=== PATIENT | female | born 1960 | race Caucasian/White ===

== ENCOUNTER 2019-12-23 13:14 | Emergency (ER) | payer OTHER, SELFPAY ==
--- NOTE | ~2019-12-23 | XR_ITS ---
EXAMINATION: XR chest 2V EXAM DATE: 12/23/2019 13:51 INDICATION: Shortness of breath. Chest pain. 2 stents placed 4 days ago. TECHNIQUE: Frontal and lateral projections of the chest obtained and reviewed. Comparison is made to prior examination from 11/02/2018, 02/20/2017. FINDINGS: Left suprahilar granuloma. The lungs are otherwise clear. There are no pleural effusions. The cardiomediastinal silhouette is within normal limits. There is no pneumothorax suspected. The bones and soft tissues are unremarkable. There are cholecystectomy clips. Left anterior descending artery cardiac stent identified. IMPRESSION: No acute cardiopulmonary findings. Reviewed, dictated and finalized at location B. [employer]
--- NOTE | 2019-12-23 13:31 | ECG_ITS ---
Measurements Intervals [place] Rate: 63 P: 28 MO: 135 QRS: 41 QRSD: 90 T: 74 QT: 389 QTc: 401 Interpretive Statements SINUS RHYTHM NORMAL ECG Electronically Signed On 12-23-2019 13:54:58 METAL [employer] by Rajesh Hsu D.O.
[2019-12-23 13:34] VITALS: BP 116/40; PULSE 70; RESP 16; TEMP 37.1; O2SAT 100
[2019-12-23 13:48] LABS: Basophils Absolute Auto 0.1 K/mm3 (0.0-0.1); Basophils Percent Auto 0.6 % (0.2-1.2); Eosinophils Absolute Auto 0.1 K/mm3 (0-0.3); Eosinophils Percent Auto 1.2 % (0-4.4); Hematocrit 35.2 % (37.0-47.0); Hemoglobin 11.6 g/dL (12.0-15.0); Immature Granulocyte Absolute 0.06 K/mm3 (0.00-0.031); Immature Granulocyte Percent A 0.7 % (0-0.5); Lymphocytes Absolute Auto 2.64 K/mm3 (0.9-3.2); Lymphocytes Percent Auto 29.4 % (18.3-44.2); Mean Corpuscular Hemoglobin 30.7 pg (26-34); Mean Corpuscular Volume 93.1 fl (80-100); Monocytes Absolute Auto 0.9 K/mm3 (0.1-0.6); Monocytes Percent Auto 9.5 % (2.6-8.5); Neutrophils Absolute Auto 5.3 K/mm3 (1.3-6.7); Neutrophils Percent Auto 58.6 % (45.5-73.1); Platelet Count Result 294 k/mm3 (150-375); Red Blood Count 3.78 M/mm3 (4.2-5.4); Red Cell Distribution Width 12.2 % (11.5-14.5)
[2019-12-23 13:59] LABS: Blood Urea Nitrogen 15 mg/dL (7-17); Carbon Dioxide 26 mmol/L (22-30); Chloride 103 mmol/L (98-107); Estimated CRCL calculation 50 ml/min; Estimated Glomerular Filt Rate > 60; Glucose 107 mg/dL (65-105); INR 0.9; Potassium 4.1 mmol/L (3.4-5.0); Prothrombin Time 12.2 Seconds (11.1-14.7); Sodium 140 mmol/L (137-145)
[2019-12-23 14:00] LABS: Partial Thromboplastin Time 28.4 SECONDS (22.3-36.8)
[2019-12-23 14:13] LABS: Troponin I 0.394 ng/mL (0.000-0.034)
--- NOTE | 2019-12-23 14:25 | ED.CHESTPAIN ---
HPI - Chest Pain General Chief Complaint: Chest Pain Stated Complaint: CP & SOB Time Seen by Provider: 12/23/19 14:18 Source: patient and RN notes reviewed Mode of arrival: ambulatory Limitations: no limitations History of Present Illness HPI narrative: Pt is a 59 y/o female who presents to the ED with c/o intermittent sharp midsternal chest pain which occurred this morning. Pt reports her pain intermittently changes from a dull pain to a sharp pain. Pt also reports SOB and upper back pain this morning, but denies BLE edema or BLE pain. She states her symptoms were worsened when she had any sort of exertion, but were alleviated when she sat down. She states she called her corporate communications associate?s office today who prompted her to come to the ED due to her symptoms. She states she has had a similar episode 3 days ago which she was evaluated for at [place] [facility]. She reports she was diagnosed with CAD due to a positive stress test. She denies a diagnosis of an AR. She reports she was prescribed Nitroglycerin which she denies taking today. Pt also reports she had a stent placed at her last visit. MD complaint: chest pain (midsternal) Pertinent past history: coronary artery disease (diagnosed with prior ED visit) Onset (ago): hour(s) (this morning) Timing of current episode: episodic Onset: during exertion Pain location: other (midsternal) Pain radiation: none Quality: sharp and dull Relieving factors: rest (sitting down) Exacerbating factors: exertion Associated symptoms: dyspnea and other (upper back pain) Related Data Home Medications Medication Instructions Recorded Confirmed bupropion HCl mg PO 12/23/19 clopidogrel 12/23/19 lisinopril 12/23/19 metoprolol succinate [Toprol XL] PO 12/23/19 nitroglycerin mg 12/23/19 ropinirole mg 12/23/19 rosuvastatin mg 12/23/19 rosuvastatin mg 12/23/19 trazodone 12/23/19 Allergies Allergy/AdvReac Type Severity Reaction Status Date / Time No Known Allergies Allergy Unverified 10/01/13 18:22 Review of Systems Review of Systems: All systems reviewed & are unremarkable except as noted in HPI and below Cardiovascular: Cardiovascular: Reports chest pain (midsternal) and Denies leg edema (bilateral) Respiratory: Respiratory: Denies dyspnea Musculoskeletal: Musculoskeletal: Reports back pain (upper) and Denies other (BLE pain) [facility] Past Medical History Medical History (Updated 12/23/19 @ 15:32 by Vikash Dong MD) Coronary artery disease Depression GERD (gastroesophageal reflux disease) Hypercholesterolemia Hypertension Rectal polyp Ulcer Surgical History Surgical History (Updated 12/23/19 @ 14:28 by Lakesha Melton) History of cholecystectomy Hx of tonsillectomy Family History Family History (Updated 06/21/18 @ 08:02 by DOCTOR UNKNOWN) Mother Family history of cardiovascular disease Acute myocardial infarction, Onset Age: 50 Cerebrovascular accident Family history of chronic obstructive pulmonary disease Father Family history of malignant neoplasm Other Malignant neoplasm of prostate Social History Social History Smoking status: Former smoker Alcohol intake: current Exam Narrative: Exam Narrative: Const: Healthy appearing, no acute distress, well nourished. HENMT: Lip normal, Moist mucous membranes. Eyes: Conjunctive normal, PERRL. Resp: Normal respiratory effect, clear to auscultation bilaterally. Cardio: Regular rate, regular rhythm, no murmurs. GI: Soft, nontender, normal bowel sounds. Back/Spine/Pelvis: Full ROM Skin: Normal color, dry skin, warm Neuro: Oriented x3, alert, normal speech. Extremities: Full ROM Psych: Mental status grossly normal, normal affect. Course Course Emergency Course: Case discussed with Dr. Smalls at [place]. She would like her admitted for observation and will accept the transfer to [place]. Vital Signs Vital signs: Vital Signs Temperature 37.1 C 12/23/19 13:34 Pulse Rate
[2019-12-23 15:00] VITALS: BP 128/80; PULSE 71; RESP 14; O2SAT 100
--- NOTE | 2019-12-23 15:23 | PC.NURSE ---
PT TOOK OWN NTG SL PER DR MADRID REQUEST.
[2019-12-23] MEDS: ASPIRIN 81 MG CHEWABLE TABLET 324 MG PO (15:38)
[2019-12-23 16:00] VITALS: BP 107/71; PULSE 70; RESP 14; O2SAT 100
[2019-12-23 17:10] VITALS: BP 120/74; PULSE 66; RESP 12; O2SAT 100
--- NOTE | 2019-12-23 17:20 | PC.NURSE ---
Called [facility] to transfer pt to a higher level of care. Trip# [id number]. ETA [id number]
[2019-12-23 18:00] VITALS: BP 123/67; PULSE 69; RESP 12; O2SAT 100
[2019-12-23 18:06] LABS: Troponin I 0.385 ng/mL (0.000-0.034)
== END 2019-12-23 19:15 | disposition short-term general hospital (02) ==
PROVIDERS: Emergency Medicine; Emergency Provider Emergency Medicine; PCP Family Medicine
DX: R07.2 Precordial pain (principal); I25.10 Atherosclerotic heart disease of native coronary artery without angina pectoris; F32.9 Major depressive disorder, single episode, unspecified; K21.9 Gastro-esophageal reflux disease without esophagitis; E78.00 Pure hypercholesterolemia, unspecified; I10 Essential (primary) hypertension; Z87.891 Personal history of nicotine dependence
CPT/HCPCS: 36415; 71046; 80048; 84484; 85025; 85610; 85730; 93005; 99285; A9270

== ENCOUNTER 2020-01-16 17:11 | Inpatient (IN) | payer OTHER, SELFPAY ==
[2020-01-16] VITALS (10 sets, daily range): BP systolic 114–134; BP diastolic 47–73; PULSE 75–113; RESP 15–26; TEMP 36.2–36.8; O2SAT 98–100; BMI 21.3; BMI 21.0
--- NOTE | ~2020-01-16 | XR_ITS ---
EXAMINATION: XR chest 2V DATE: 01/16/2020 18:03 INDICATION: Shortness of breath TECHNIQUE: AP and lateral views of the chest are obtained. COMPARISON: 12/23/2019 FINDINGS: The lungs are free of acute opacities. There is no pleural effusion or pneumothorax. The ca rdiomediastinal silhouette is normal. There is moderate thoracic spondylosis. There is a stent in the left anterior descending coronary artery. IMPRESSION: 1. No acute cardiopulmonary abnormality. Reviewed, dictated and finalized at location A.
--- NOTE | ~2020-01-16 | US_ITS ---
EXAMINATION: US venous doppler LE RT EXAM DATE: 01/17/2020 14:28 INDICATION: History femoral DVT. On blood thinners. TECHNIQUE: Multiple grayscale, color flow and Doppler images of the right lower extremity deep venous system were obtained and reviewed. There is no prior study for comparison. FINDINGS: The right lesser saphenous vein is noncompressible, thrombosed. The right common femoral, f emoral and profunda veins demonstrate normal color flow, respiratory variation, augmentation and comp ressibility. Compressibility, color flow confirmed within the right popliteal, posterior tibial, per marinelli, and greater saphenous veins. IMPRESSION: Lesser saphenous thrombosis. Reviewed, dictated and finalized at location A.
--- NOTE | 2020-01-16 17:30 | ED_ITS ---
I attest that this documentation has been prepared under the direction and in the presence of Waldo Wilson DO. Lesinksi, Jacob D., Scribe 01/16/20;17:30 HPI - Dizziness General Chief Complaint: Dizziness Stated Complaint: cp/diff breathing Time Seen by Provider: 01/16/20 17:26 History of Present Illness HPI Narrative: CP SOB, got worse today did talk to Drs at [place], told her to come in dizziness Related Data Home Medications Medication Instructions Recorded Confirmed bupropion HCl mg PO 12/23/19 clopidogrel 12/23/19 metoprolol succinate [Toprol XL] PO 12/23/19 nitroglycerin mg 12/23/19 ropinirole mg 12/23/19 rosuvastatin mg 12/23/19 trazodone 12/23/19 amlodipine 5 mg tablet 5 mg PO DAILY 01/01/20 isosorbide mononitrate 30 mg 30 mg PO DAILY 01/01/20 tablet,extended release 24 hr apixaban 5 mg tablet 5 mg PO BID 01/06/20 lisinopril 20 mg tablet 20 mg PO DAILY 01/06/20 Allergies Allergy/AdvReac Type Severity Reaction Status Date / Time No Known Allergies Allergy Verified 01/06/20 11:48 [facility] Social History Social History Smoking status: Former smoker Alcohol intake: current Course Vital Signs Vital signs: Vital Signs Temperature 36.3 C L 01/16/20 17:14 Pulse Rate 90 01/16/20 17:14 Respiratory Rate 18 01/16/20 17:14 Blood Pressure 114/47 L 01/16/20 17:14 Pulse Oximetry 100 01/16/20 17:14 Temperature 36.3 C L 01/16/20 17:14 Pulse Rate 90 01/16/20 17:14 Respiratory Rate 18 01/16/20 17:14 Blood Pressure 114/47 L 01/16/20 17:14 Pulse Oximetry 100 01/16/20 17:14 Discharge Plan Discharge Prescriptions: No Action amlodipine 5 mg tablet 5 mg PO DAILY RF: 0 isosorbide mononitrate 30 mg tablet extended release 24 hr 30 mg PO DAILY RF: 0 lisinopril 20 mg tablet 20 mg PO DAILY RF: 0 Eliquis 5 mg tablet 5 mg PO BID RF: 0 alprazolam [Xanax] 0.25 mg tablet 0.25 mg PO TID PRN (Reason: anxiety) Qty: 30 RF: 0 clopidogrel 75 mg tablet RF: 0 bupropion HCl 300 mg tablet extended release 24 hr PO RF: 0 ropinirole 1 mg tablet RF: 0 trazodone 50 mg tablet RF: 0 metoprolol succinate [Toprol XL] 100 mg tablet extended release 24 hr PO RF: 0 nitroglycerin 0.4 mg tablet, sublingual RF: 0 rosuvastatin 40 mg tablet RF: 0
--- NOTE | 2020-01-16 17:37 | ED.CHESTPAIN ---
HPI - Chest Pain General Chief Complaint: Dizziness Stated Complaint: cp/diff breathing Time Seen by Provider: 01/16/20 17:26 Source: patient Mode of arrival: ambulatory Limitations: no limitations History of Present Illness HPI narrative: The pt is a 59 y/o female who presents to the ED c/o CP onset approximately one month ago. Pt states that she had stents placed at [place] following an CA. She states that she then began to experience CP, SOB, as well as dizziness. She states that she presented back to this ED, and was then transferred back to [place]. Pt had clots around her stent, so she had these removed. She then began to improve. She states today, her condition worsened, but is improved currently. Pt notes that her condition improves when she sits down. She also notes that she has been experiencing rectal bleeding for one day. Pt states that one day ago, she began to experience low BP, with it never going above 80s/40s. This returned to normal after stopping two of her medications. Pt notes that she sees cardiology at [place]. MD complaint: chest pain Pertinent past history: prior CA Onset (ago): month(s) (Approximately 1) Timing of current episode: other (Improved (Was worse today than normal)) Relieving factors: other (Sitting down) Context: recent surgery (Stent placement) Associated symptoms: dyspnea and other (Dizziness, rectal bleeding) Related Data Home Medications Medication Instructions Recorded Confirmed bupropion HCl mg PO 12/23/19 clopidogrel 75 mg PO 12/23/19 metoprolol succinate [Toprol XL] PO DAILY 12/23/19 nitroglycerin mg 12/23/19 ropinirole mg 12/23/19 rosuvastatin mg 12/23/19 trazodone 12/23/19 amlodipine 5 mg tablet 5 mg PO DAILY 01/01/20 isosorbide mononitrate 30 mg 30 mg PO DAILY 01/01/20 tablet,extended release 24 hr apixaban 5 mg tablet 5 mg PO BID 01/06/20 lisinopril 10 mg 01/16/20 Allergies Allergy/AdvReac Type Severity Reaction Status Date / Time No Known Allergies Allergy Verified 01/06/20 11:48 Review of Systems Review of Systems: All systems reviewed & are unremarkable except as noted in HPI and below Cardiovascular: Cardiovascular: Reports chest pain Respiratory: Respiratory: Reports dyspnea Gastrointestinal: Gastrointestinal: Reports other (Rectal bleeding) Neurologic: Reports dizziness PMF Past Medical History Medical History (Updated 01/16/20 @ 18:55 by Waldo Wilson, DO) Age-related osteoporosis without current pathological fracture Anosmia Attention deficit hyperactivity disorder (ADHD), combined type Bone necrosis of mandible Calculus of ureter Coronary artery disease Depression Essential (primary) hypertension Generalized anxiety disorder GERD (gastroesophageal reflux disease) Hypercholesterolemia Hypertension Insomnia Iron deficiency anemia secondary to blood loss (chronic) Peritoneal adhesions (postprocedural) (postinfection) Rectal polyp Restless leg syndrome Supraventricular tachycardia Ulcer Surgical History Surgical History (Updated 01/16/20 @ 17:48 by Orlando York) History of cholecystectomy Hx of tonsillectomy S/P PTCA (percutaneous transluminal coronary angioplasty) Stented coronary artery Social History Social History Smoking status: Former smoker Alcohol intake: current Gender identity (if verbalized by the patient): Female Comments PCP: Dr. Morris Exam Narrative: Exam Narrative: APPEARANCE: No acute distress, nontoxic, resting in bed EYES: EOMI HEENT: Normocephalic, atraumatic, OMM RESPIRATORY: No respiratory distress Clear to auscultation bilaterally with no rhonchi wheezing or rales. CARDIOVASCULAR: Regular rate and rhythm without murmurs rubs or gallops. ABDOMINAL: Soft, nontender, nondistended, no rebound or guarding Rectal: External hemorrhoids present, no active bleeding, small amount of soft stool is Hemoccult negative MUSCULOSKELETAl: Mo
[2020-01-16 18:03] LABS: Basophils Absolute Auto 0.1 K/mm3 (0.0-0.1); Basophils Percent Auto 0.8 % (0.2-1.2); Eosinophils Absolute Auto 0.2 K/mm3 (0-0.3); Eosinophils Percent Auto 1.9 % (0-4.4); Hematocrit 30.1 % (37.0-47.0); Hemoglobin 10.2 g/dL (12.0-15.0); Immature Granulocyte Absolute 0.08 K/mm3 (0.00-0.031); Immature Granulocyte Percent A 0.9 % (0-0.5); Lymphocytes Absolute Auto 2.86 K/mm3 (0.9-3.2); Lymphocytes Percent Auto 33.1 % (18.3-44.2); Mean Corpuscular HGB Conc 33.9 g/dl (32-36); Mean Corpuscular Hemoglobin 30.9 pg (26-34); Mean Corpuscular Volume 91.2 fl (80-100); Mean Platelet Volume 10.2 fl (7.4-10.4); Monocytes Absolute Auto 0.8 K/mm3 (0.1-0.6); Monocytes Percent Auto 9.6 % (2.6-8.5); Neutrophils Absolute Auto 4.6 K/mm3 (1.3-6.7); Neutrophils Percent Auto 53.7 % (45.5-73.1); Platelet Count Result 304 k/mm3 (150-375); Red Cell Distribution Width 12.3 % (11.5-14.5); White Blood Count 8.6 K/mm3 (4.5-10.0)
[2020-01-16 18:13] LABS: INR 1.2; Prothrombin Time 14.8 Seconds (11.1-14.7)
[2020-01-16 18:14] LABS: Partial Thromboplastin Time 35.1 SECONDS (22.3-36.8)
[2020-01-16 18:16] LABS: Alanine Aminotransferase 86 U/L (4-35); Albumin Level 4.4 g/dL (3.5-5.1); Alkaline Phosphatase 88 U/L (38-126); Aspartate Amino Transferase 78 U/L (14-36); Bilirubin,Total 0.2 mg/dL (0.2-1.3); Blood Urea Nitrogen 16 mg/dL (7-17); Calcium 9.4 mg/dL (8.4-10.2); Carbon Dioxide 21 mmol/L (22-30); Chloride 108 mmol/L (98-107); Estimated CRCL calculation 41 ml/min; Estimated Glomerular Filt Rate 51; Glucose 87 mg/dL (65-105); Sodium 139 mmol/L (137-145)
[2020-01-16 18:27] LABS: Troponin I < 0.012 ng/mL (0.000-0.034)
[2020-01-16] MEDS: LACTATED RINGERS 1,000 ML 999 ML IV CONT (18:33)
--- NOTE | 2020-01-16 19:02 | PC.NURSE ---
Patient to bathroom to provide urine sample
[2020-01-16 19:24] LABS: Add Urine Microscopic? YES; Appearance Urine Clear (Clear); Bacteria Urine Trace /hpf; Bilirubin Urine Negative (Negative); Blood Urine Negative (Negative); Color Urine Straw (Yellow); Glucose Urine UA Negative (Negative); Ketones Urine Negative (Negative); Leukocyte Esterase Ur Trace LEU/UL (Negative); Mucus Urine Rare /lpf; Nitrate Urine Negative (Negative); Protein Urine Negative (Negative); RBC Urine 0-2 /hpf (0-2); Urobilinogen Urine Negative mg/dL (<2.0)
--- NOTE | 2020-01-16 21:10 | ADMGEN ---
This patient, Viri Toscano, was admitted to IMU Room 211-01. Patient/family oriented to hospital policies and general routines including ID bracelet, bed and alarms, visiting hours, pain management, procedures, bathroom and other care routines, personal items, smoking policy, room service/diet, and visiting hours. Valuables list has been completed. Information on how to activate the Rapid Response Team has been discussed. Patient/Family are encouraged to report perceived risks to care and to ask questions if they do not understand what they are told or what they should do.
[2020-01-16 22:23] LABS: Hematocrit 26.5 % (37.0-47.0)
[2020-01-16] MEDS: LACTATED RINGERS 1,000 ML 125 ML IV CONT (22:43)
[2020-01-16 22:46] LABS: Troponin I < 0.012 ng/mL (0.000-0.034)
[2020-01-17] VITALS (14 sets, daily range): BP systolic 106–166; BP diastolic 47–71; PULSE 69–119; RESP 16–18; TEMP 36.1–36.5; O2SAT 18–100
[2020-01-17 01:19] LABS: Troponin I < 0.012 ng/mL (0.000-0.034)
--- NOTE | 2020-01-17 03:31 | PM.IMHP ---
H&P: HPI History of Present Illness Chief complaint: Rectal bleeding, chest pain Narrative: Date and time of patient contact: 01/17/2020 at 0400 Viri Toscano is a 59 year old female with a past medical history of coronary artery disease cardiac stent November 2019 complicated by AV fistula clot at the cath site who presented to the ER with dizziness, rectal bleeding, shortness of breath and chest pain. The patient reports that she has been having dizziness that is gotten progressively worse until 2 days ago. She checked her blood pressure at that time in her systolic blood pressure was in the 80s. She held her home ANGELO-inhibitor and metoprolol but continued to home Norvasc and Imdur. The dizziness and lightheadedness had improved with holding these 2 medications. She has been having dyspnea on exertion for months. She subsequently had an outpatient stress test followed by cardiac catheterization December 20, 2019 to the proximal and mid LAD due to diffuse disease. Patient had repeat cardiac catheterization on 12/25/2019 she had been evaluated at [facility] on the for recurrent chest pain. She was transferred back to [place] where repeat cardiac catheterization with results as discussed under past medical history with recommended medical management. The patient's shortness of breath accompanied by nausea, clamminess, chest pressure and would resolve with rest. Her stress test had demonstrated inferior lateral hypokinesis suggestive of ischemia of the right coronary artery and circumflex territory. The patient had a Doppler of her right groin on 01/02/2020 right common femoral artery vein fistula with a small resolving hematoma detected on ultrasound following cardiac catheterization. she also had not new femoral vein DVT detected. She evidently had a CTA that demonstrated a left lung pulmonary embolism per her report. She was admitted to the hospital at that time original on heparin drip was transition to Eliquis. Since being started on Eliquis she has had 2 separate episodes of hematochezia. Patient does have a history of internal hemorrhoids and had a colonoscopy a couple of years ago. She reports that she had not been having any hard stools prior to onset of her hematochezia. Her 1st episode hematochezia was a small amount several days ago. Then just prior to presentation to the ER today she had had a small normal only formed bowel movement I was followed by a large amount of bright red blood. She then put a pad on because she was bleeding so much from her rectum. She went to lay down in bed and when she got up she had blood through the pad. When she went back to the bathroom later on she did not pass any stool but when she urinated she then on 0 passed another significant amount of blood from her rectum. The bleeding was painless. Her hemoglobin 1 month ago was 11 and a repeat hemoglobin today was 10. Review of Systems Review of Systems: Narrative: Except as documented in the HPI, all other systems were reviewed and are negative. [facility] Past Medical History Medical History Age-related osteoporosis without current pathological fracture Anosmia Attention deficit hyperactivity disorder (ADHD), combined type Bone necrosis of mandible Calculus of ureter Coronary artery disease Depression Essential (primary) hypertension Generalized anxiety disorder GERD (gastroesophageal reflux disease) Hypercholesterolemia Hypertension Insomnia Iron deficiency anemia secondary to blood loss (chronic) Peritoneal adhesions (postprocedural) (postinfection) Rectal polyp Restless leg syndrome Supraventricular tachycardia Ulcer Surgical History Surgical History (Updated 01/17/20 @ 07:49 by Gracie Law DO) History of cholecystectomy History of partial gastrectomy History of Turner-en-Y gastric bypass Due to gastric outlet obstruction 1999 complicated by peritonitis, prolonged i
[2020-01-17 05:26] LABS: Basophils Percent Auto 0.6 % (0.2-1.2); Eosinophils Absolute Auto 0.1 K/mm3 (0-0.3); Eosinophils Percent Auto 1.9 % (0-4.4); Hematocrit 27.1 % (37.0-47.0); Hemoglobin 9.3 g/dL (12.0-15.0); Immature Granulocyte Absolute 0.03 K/mm3 (0.00-0.031); Immature Granulocyte Percent A 0.4 % (0-0.5); Lymphocytes Absolute Auto 2.71 K/mm3 (0.9-3.2); Lymphocytes Percent Auto 39.6 % (18.3-44.2); Mean Corpuscular HGB Conc 34.3 g/dl (32-36); Mean Corpuscular Hemoglobin 31.4 pg (26-34); Mean Corpuscular Volume 91.6 fl (80-100); Mean Platelet Volume 10.2 fl (7.4-10.4); Monocytes Absolute Auto 0.6 K/mm3 (0.1-0.6); Monocytes Percent Auto 8.2 % (2.6-8.5); Neutrophils Absolute Auto 3.4 K/mm3 (1.3-6.7); Neutrophils Percent Auto 49.3 % (45.5-73.1); Platelet Count Result 257 k/mm3 (150-375); Red Blood Count 2.96 M/mm3 (4.2-5.4); White Blood Count 6.8 K/mm3 (4.5-10.0)
[2020-01-17 05:37] LABS: Blood Urea Nitrogen 12 mg/dL (7-17); Calcium 8.6 mg/dL (8.4-10.2); Carbon Dioxide 21 mmol/L (22-30); Chloride 109 mmol/L (98-107); Estimated CRCL calculation 45 ml/min; Estimated Glomerular Filt Rate 57; Glucose 90 mg/dL (65-105); Potassium 4.2 mmol/L (3.4-5.0); Sodium 139 mmol/L (137-145)
[2020-01-17] MEDS: buPROPion HCL XL (24 HR) 150 MG TABCR 300 MG PO (08:39)
[2020-01-17] MEDS: CLOPIDOGREL BISULFATE 75 MG TABLET PO (08:39)
[2020-01-17 10:49] LABS: Hematocrit 26.4 % (37.0-47.0); Hemoglobin 8.9 g/dL (12.0-15.0)
--- NOTE | 2020-01-17 13:14 | WPDGICN ---
Assessment and Plan Additional Plan This is a 59-year-old white female patient I am asked to see at the request of the hospitalist service. Patient presented to the emergency room with a large amount of bright red blood per rectum. she felt dizzy lightheaded and states the blood was gushing from her rectum. This occurred yesterday with bleeding lasting for perhaps 6 hours. Because of large amount of bleeding and feeling lightheaded she went to the emergency room. She states in November she began to be short of breath with associated chest pain a stress test suggested she had coronary artery disease and subsequently heart catheterization was performed. this require acquired stent placement. patient has had recurrent chest pain prompting several heart catheterizations done at [facility]. During this interval of time she subsequently was found to have an AV fistula at the catheterization site. She also was identified is quite likely having a right lung pulmonary embolus according to a recent CTA. patient has been maintained on Plavix as well as Eliquis at the present time. Intermittently in the past she has had a small amount of bright red blood per rectum attributed to hemorrhoids. Colonoscopy performed for screening purposes in 2014 revealed only internal hemorrhoids. Past medical history is significant for peptic ulcer disease. She has a history of gastric outlet obstruction complicated by peritonitis. At 1 point she had a Turner-en-Y gastric bypass. She is also status post cholecystectomy, partial gastrectomy. Tonsillectomy. She has been treated for anxiety, calculus of ureter, hypertension, hypercholesterolemia, Family history is significant her sister has Ehrlos-Danlos Syndrome Physical exam reveals her to be alert. Vital signs stable. HEENT exam unremarkable. She is anicteric. Lungs are clear to auscultation and percussion. Heart is without murmur or extra sounds. Abdominal exam reveals prominent midline scar. Bowels sounds present soft no localized tenderness, no masses, no organomegaly. Digital external rectal exam reveals hemorrhoids at the present time there is no blood present. Laboratory work reveals white count 6.8, hemoglobin 8.9, hematocrit 26.4, initial hemoglobin on presentation in November was 11.6 AST 78, ALT 86, alk-phos 88, total bilirubin 0.2. Impression 1. Rectal bleeding. Etiology uncertain but very easily could be from known hemorrhoids. Her beta by anticoagulation status . Plan to evaluate with colonoscopy. Further treatment of bleeding will be determined based on findings after evaluation. 2. Atherosclerotic heart disease. Status post stent placement and angioplasty. 3. Av fistula. Noted at the site of previous catheterization. 4. Pulmonary embolus. Suspected by recent CT.. Patient remains somewhat short of breath. Currently anticoagulated. We may need to hold the anticoagulation briefly given her excessive bleeding. 5. History of peptic ulcer disease with several abdominal surgeries. Plan to proceed with colonoscopy in the morning after preparation today. Continue to monitor hemoglobin. Hopefully restart anticoagulation after only a brief interval. GI Consult Note Consult date/time: 01/17/20 13:14 HPI: Viri Toscano is a 59 year old female [facility] Past Medical History Medical History Age-related osteoporosis without current pathological fracture Anosmia Attention deficit hyperactivity disorder (ADHD), combined type Bone necrosis of mandible Calculus of ureter Coronary artery disease Depression Essential (primary) hypertension Generalized anxiety disorder GERD (gastroesophageal reflux disease) Hypercholesterolemia Hypertension Insomnia Iron deficiency anemia secondary to blood loss (chronic) Peritoneal adhesions (postprocedural) (postinfection) Rectal polyp Restless leg syndrome Supraventricular tachycardia Ulcer S
--- NOTE | 2020-01-17 13:31 | PM.IMPN ---
Progress Note: A&P Assessment and Plan (1) Acute GI bleeding: Code(s): K92.2 - Gastrointestinal hemorrhage, unspecified Status: Acute Assessment and Plan: The patient has had a recent LHC with NAYELI placed and recent diagnosis of right lower extremity DVT on Plavix and Eliquis here for rectal bleeding. Has hx of hemoorhoids. Hgb 10.2 on admission but has droped to 8.9. GI consulted and discussed. Plan for colonoscopy in the morning. Contineu Plavix at least but will need dual platelet therapy or heparin. Serial HH. Transfuse as needed. Repeat Doppler showing no femoral vein DVT. Will hold on Heparin drip at this time. Resume Aspirin when okay with GI probably after colonoscopy tomorrow. (2) Chest pain: Code(s): R07.9 - Chest pain, unspecified Status: Acute Assessment and Plan: No evidence of acute coronary syndrome. Her troponins are negative x3. [place] providers felt the SOB was related to deconditioning but did recommend PFTs. They did not feel this was related to PE. Consider CTA if remains symptomatic. (3) Coronary artery disease: Code(s): I25.10 - Atherosclerotic heart disease of [place] coronary artery without angina pectoris Status: Acute Assessment and Plan: Chepe had a LHC 12/20/19 that showed severe clcific disease in the proximal and mid LAD requiring overlapping NAYELI placed at that time. Repeat LHC on 12/25/19 for CP showing occluded small septal manager pipeline artery in the distal LAD. She has continued to have SOB. She is followed at [place] and they did not feel the patient had a PE. We have continue home Plavix here. The patient's Imdur and Norvasc were discontinued 3 days ago due to HoTN which was discussed with her physician. BP stable here. Continue to monitor. (4) DVT (deep venous thrombosis): Code(s): I82.409 - Acute embolism and thrombosis of unspecified deep veins of unspecified lower extremity Status: Acute Assessment and Plan: Patient seen on January 01 for right groin mass and found to have a right common femoral artery to vein AV fistula, right groin hematoma and a right deep femoral thrombus. She was started on Heparin and transitioned to Eliquis. Not felt to have a PE. Plan for 3 months of treatment. No apparent treatment for the fistula. Eliquis is on hold. Will reepat US today. If negative, will hold off on Heparin. If positive, will start heparin gtt and monitor HH closely. (5) Anemia: Code(s): D64.9 - Anemia, unspecified Status: Acute Assessment and Plan: Hgb in November was 11.6 and 10.2 on admission. Hgb has trended down to 8.9. Continue to monitor and transfuse as needed. Will check iron studies and B12. Subjective Date/time seen: 01/17/20 13:31 Interval history: 59yo female with know CAD with recent stent placement complicated by right femoral AV fistula and Rt femoral vein DVT currently on plavix and Eliquis here for rectal bleeding. Patient has hx of internal hemorrhoids by colonoscopy 4-5 years ago. She was lightheaded with standing associated with chest pain and SOB. No BM since admission. No CP or SOB today but hasn't been up much. No nausea or vomiting. Exam Narrative: Exam Narrative: AF 124/64 Gen - NARD lying semi recumbent in bed Chest - CTA bilaterally, nml RR CV - RRR S1/S2; Tele showing no significant dysrhythmias Abd -soft. Nontender. Nondistended. Positive bowel sounds. Ext - No pedal edema. 2+ femoral pulses. No femoral bruits. Psych - Nml mood and affect Skin - Warm and dry Objective Data Vital Signs Vital Signs: Vital Signs - 24 hr 01/16/20 17:14 01/16/20 17:24 01/16/20 17:39 Temperature 97.4 F L 98.2 F 97.7 F Pulse Rate 90 96 96 Respiratory Rate 18 26 H 26 H Blood Pressure 114/47 L 123/73 123/73 Pulse Oximetry 100 100 100 01/16/20 18:18 01/16/20 19:22 01/16/20 20:08 Temperature Pulse Rate 113 H 86 75 Respirator
--- NOTE | 2020-01-17 16:45 | WPDANESEPP ---
Anes - Eval Pre Procedure Procedure: Operation Date: 01/18/20 08:00 Proposed Procedures p Colonoscopy - Stepan Yates MD Date/Time: 01/17/20 16:45 Pre Op Diagnosis: Rectal bleeding, chest pain Patient Data Age: 59 Gender: F Height: 1.6 m Weight: 54 kg Last Vital Signs Temp 36.4 C 01/17/20 12:00 Pulse 76 01/17/20 12:00 Resp 18 01/17/20 12:00 BP 124/64 01/17/20 12:00 Pulse Ox 18 L 01/17/20 12:00 Allergies Allergy/AdvReac Type Severity Reaction Status Date / Time No Known Allergies Allergy Verified 01/06/20 11:48 Home Medications Medication Instructions Recorded Confirmed Type bupropion HCl 300 mg PO DAILY 12/23/19 01/16/20 History clopidogrel 75 mg PO DAILY 12/23/19 01/16/20 History nitroglycerin 0.4 mg SUBLINGUAL Q5MIN PRN 12/23/19 01/16/20 History ropinirole 1 mg PO HS 12/23/19 01/16/20 History rosuvastatin 40 mg PO HS 12/23/19 01/16/20 History trazodone 50 mg PO HS PRN 12/23/19 01/16/20 History alprazolam 0.25 mg tablet 0.25 mg PO TID PRN #30 tablet 01/06/20 01/16/20 Rx apixaban 5 mg tablet 5 mg PO BID 01/06/20 01/16/20 History Laboratory Tests 01/16/20 01/16/20 01/16/20 17:54 17:54 17:54 WBC 8.6 K/mm3 K/mm3 (4.5-10.0) RBC 3.30 M/mm3 L M/mm3 (4.2-5.4) Hgb 10.2 g/dL L g/dL (12.0-15.0) Hct 30.1 % L % (37.0-47.0) MCV 91.2 fl fl (80-100) MCH 30.9 pg pg (26-34) MCHC 33.9 g/dl g/dl (32-36) RDW 12.3 % % (11.5-14.5) Plt Count 304 k/mm3 k/mm3 (150-375) MPV 10.2 fl fl (7.4-10.4) Immature Gran % (Auto) 0.9 % H % (0-0.5) Neut % (Auto) 53.7 % % (45.5-73.1) Lymph % (Auto) 33.1 % % (18.3-44.2) [place] % (Auto) 9.6 % H % (2.6-8.5) Eos % (Auto) 1.9 % % (0-4.4) Baso % (Auto) 0.8 % % (0.2-1.2) Lymph # (Auto) 2.86 K/mm3 K/mm3 (0.9-3.2) [place] # (Auto) 0.8 K/mm3 H K/mm3 (0.1-0.6) Eos # (Auto) 0.2 K/mm3 K/mm3 (0-0.3) Baso # (Auto) 0.1 K/mm3 K/mm3 (0.0-0.1) Abs Immat Gran (auto) 0.08 K/mm3 H K/mm3 (0.00-0.031) Absolute Neuts (auto) 4.6 K/mm3 K/mm3 (1.3-6.7) Absolute Nucleated RBC 0.0 K/mm3 K/mm3 (0.0-0.012) Nucleated RBC % 0.0 % % (0.0-0.2) PT 14.8 Seconds H Seconds (11.1-14.7) INR 1.2 APTT 35.1 SECONDS SECONDS (22.3-36.8) Sodium 139 mmol/L mmol/L (137-145) Potassium 4.0 mmol/L mmol/L (3.4-5.0) Chloride 108 mmol/L H mmol/L (98-107) Carbon Dioxide 21 mmol/L L mmol/L (22-30) BUN 16 mg/dL mg/dL (7-17) Creatinine 1.10 mg/dL H mg/dL (0.7-1.0) Estim Creat Clear Calc 41 ml/min ml/min Estimated GFR 51 L (59 - ) Glucose 87 mg/dL mg/dL (65-105) Calcium 9.4 mg/dL mg/dL (8.4-10.2) Total Bilirubin 0.2 mg/dL mg/dL (0.2-1.3) AST 78 U/L H U/L (14-36) ALT 86 U/L H U/L (4-35) Alkaline Phosphatase 88 U/L U/L (38-126) Troponin I < 0.012 ng/mL ng/mL (0.000-0.034) Total Protein 8.0 g/dL g/dL (6.3-8.2) Albumin 4.4 g/dL g/dL (3.5-5.1) Urine Color Urine Appearance Urine pH Ur Specific [place] Urine Protein Urine Glucose (UA) Urine Ketones Ur Blood (Man) Urine Nitrate Urine Bilirubin Urine Urobilinogen Leukocyte Esterase Rfl Urine RBC Urine WBC Urine Bacteria Urine Mucus Blood Type Antibody Screen 01/16/20 01/16/20 01/16/20 17:54 19:13 22:19 WBC RBC Hgb Hct MCV MCH MCHC RDW Plt Count
[2020-01-17 17:51] LABS: Hematocrit 28.3 % (37.0-47.0); Hemoglobin 9.5 g/dL (12.0-15.0)
[2020-01-17] MEDS: PEG (High)/E-LYTE SOLN 4,000 ML BTL 4000 ML PO (18:03)
[2020-01-17 18:52] LABS: Iron 105 ug/dL (37-170)
[2020-01-17 19:01] LABS: Percent Iron Saturation 27 % (20-50)
[2020-01-17 19:13] LABS: Folic Acid > 20.0 ng/mL (2.76->20); Vitamin B12 > 1000.0 pg/mL (239-931)
[2020-01-17 21:46] LABS: Glucose Point of Care 141 (65-105)
[2020-01-18] VITALS (22 sets, daily range): BP systolic 102–142; BP diastolic 46–77; PULSE 72–113; RESP 16–20; TEMP 36.3–37.1; O2SAT 100
[2020-01-18] MEDS: ONDANSETRON INJ 4 MG/2 ML VIAL IV PUSH (02:28)
[2020-01-18 05:10] LABS: Hematocrit 30.4 % (37.0-47.0); Mean Corpuscular HGB Conc 32.9 g/dl (32-36); Mean Corpuscular Hemoglobin 30.9 pg (26-34); Mean Corpuscular Volume 93.8 fl (80-100); Mean Platelet Volume 10.8 fl (7.4-10.4); Platelet Count Result 222 k/mm3 (150-375); Red Blood Count 3.24 M/mm3 (4.2-5.4); Red Cell Distribution Width 12.4 % (11.5-14.5); White Blood Count 6.9 K/mm3 (4.5-10.0)
[2020-01-18 06:17] LABS: Blood Urea Nitrogen 8 mg/dL (7-17); Calcium 8.8 mg/dL (8.4-10.2); Carbon Dioxide 20 mmol/L (22-30); Chloride 104 mmol/L (98-107); Estimated CRCL calculation 50 ml/min; Estimated Glomerular Filt Rate > 60; Glucose 94 mg/dL (65-105); Magnesium 1.7 mg/dL (1.6-2.3); Potassium 4.1 mmol/L (3.4-5.0); Sodium 138 mmol/L (137-145)
--- NOTE | 2020-01-18 07:52 | WPDANESEFPP ---
Anes - Eval Final PreProcedure Day of Procedure 01/18/20 07:52 Patient weight: normal Heart: regular rate and rhythm Lungs: clear to auscultation Airway: Mallampati scale class II Neurological: alert and oriented Last oral intake: >/= 8 hours ASA classification: III Emergent: yes Anesthetic plan: proceed Anesthesia type and monitoring: general GIVS and standard monitoring Informed Consent: The patient's anesthetic plan and its attendant risks and benefits were discussed with the patient/family/POA. Questions were solicited and answers provided to the satisfaction of the patient/family/POA.
[2020-01-18] MEDS: LACTATED RINGERS 1,000 ML 150 ML IV CONT (07:57)
[2020-01-18] MEDS: CLOPIDOGREL BISULFATE 75 MG TABLET PO (09:17)
[2020-01-18] MEDS: buPROPion HCL XL (24 HR) 150 MG TABCR 300 MG PO (09:18)
--- NOTE | 2020-01-18 11:39 | PM.IMPN ---
Progress Note: A&P Assessment and Plan (1) Acute GI bleeding: Code(s): K92.2 - Gastrointestinal hemorrhage, unspecified Status: Acute Assessment and Plan: The patient has had a recent LHC with NAYELI placed and recent diagnosis of right lower extremity DVT currently on Plavix and Eliquis admitted here for rectal bleeding. Has hx of hemoorhoids. Hgb 10.2 on admission and stable. Colonoscopy this morning showing hemorrhoid with ulcer. Will continue Plavix and will add ASA until we settle on plans for appropriate anticoagulation/anti-plt therapy. General surgery consult ordered. (2) Chest pain: Code(s): R07.9 - Chest pain, unspecified Status: Acute Assessment and Plan: No evidence of acute coronary syndrome. Her troponins are negative x3. [place] providers felt the SOB was related to deconditioning but did recommend PFTs. They did not feel this was related to PE. Consider CTA if remains symptomatic. (3) Coronary artery disease: Code(s): I25.10 - Atherosclerotic heart disease of [place] coronary artery without angina pectoris Status: Acute Assessment and Plan: Chepe had a LHC 12/20/19 that showed severe calcified disease in the proximal and mid LAD requiring overlapping NAYELI placed at that time. Repeat LHC on 12/25/19 for CP showing occluded small septal [place] [employer] artery in the distal LAD. She has continued to have SOB. She is followed at [facility] and they did not feel the patient had a PE. We have continue her home Plavix here. The patient's Imdur, Metoprolol, Lisinopril and Norvasc were discontinued 3 days ago due to HoTN which was discussed with her physician. Continue Crestor. BP stable here. We have added back ASA. Metorlol started as well given her tachycardia. Consider PE but feel less likely. More likely her SOB is related to anxiety. (4) DVT (deep venous thrombosis): Code(s): I82.409 - Acute embolism and thrombosis of unspecified deep veins of unspecified lower extremity Status: Acute Assessment and Plan: Patient seen on January 01 for right groin mass and found to have a right common femoral artery to vein AV fistula, right groin hematoma and a right deep femoral DVT extending to the origin of the common femoral vein. No apparent treatment for the fistula. She was started on Heparin and transitioned to Eliquis. Not felt to have a PE and no imagin was done. Discharged on 01/03/20 with plans for 3 months of treatment. Also plan for her to followup with vascular surgery for repeat US on 02/12/20. Here, we have placed the Eliquis on hold. Repeat Doppler showing patent right common femoral vein. Called vascular surgery and left message. Awaiting a call back to discuss. Will need to talk with radiology to see if they saw the deep femoral vein. (5) Anemia: Code(s): D64.9 - Anemia, unspecified Status: Acute Assessment and Plan: Hgb in November was 11.6 and 10.2 on admission. Hgb has trended down to 8.9 yesterday but climbed to 10 overngiht and today. Continue to monitor and transfuse as needed. Iron studies, B12 and folate all are normal. Subjective Date/time seen: 01/18/20 11:39 Interval history: 59yo female with know CAD with recent stent placement complicated by right femoral AV fistula and Rt femoral vein DVT currently on plavix and Eliquis here for rectal bleeding. Had colonoscopy this morning and tolerated it well. No further bleeding. HR elevated at times mostly when she is active. SHe has had this in the past. She had low BP recently prior to admission and she held herLisinopril and Metoprolol. She called her doctor who told her to stop her Imdur, Norvasc as well. She states she was told she might have a PE but no testing was done. No paper work in her possession mentions that she had a PE. She was seen by vascular surgery with plans for repeat dopple on 02/12/20. Exam Narrative: Exam Narrative: A
--- NOTE | 2020-01-18 13:22 | PM.CNGS ---
Assessment and Plan Assessment and plan (1) Bleeding internal hemorrhoids: Code(s): K64.8 - Other hemorrhoids Status: Acute Assessment and Plan: Probably became irritated due to her normal bowel habits and all the cardiac procedures and testing she has had recently. Normally I would put her on a psyllium product and mineral oil. However she reports these have bothered her when she has tried them in the past. It seems her bleeding has stopped off the Eliquis. I would stop her anticoagulation another 24-48 hours and then restart it. If she redevelops bleeding at any time, we would proceed with hemorrhoidectomy. Obviously the hemorrhoidectomy would be at risk for postoperative bleeding as well. She has continued her anti-platelet therapy and is not bleeding while taking that. Continue to follow but hold Eliquis for now. I will restart her on Lovenox, a prophylactic dose, in the meantime. (2) S/P PTCA (percutaneous transluminal coronary angioplasty): Code(s): Z98.61 - Coronary angioplasty status Status: Acute Assessment and Plan: Two different procedures. Complicated by right groin AV fistula which is likely closed as well as a profundus femora 6 vein DVT. (3) DVT (deep venous thrombosis): Code(s): I82.409 - Acute embolism and thrombosis of unspecified deep veins of unspecified lower extremity Status: Acute Assessment and Plan: Profundus femoral risks vein. Will need to have her anticoagulation restarted. Low-dose Lovenox in the interim. (4) Anemia: Code(s): D64.9 - Anemia, unspecified Status: Acute Assessment and Plan: Stable for now. History of Present Illness Consult details Consult date: 01/18/20 Reason for consult: other (Bleeding hemorrhoids) Narrative: Patient is a 59-year-old woman who has a rather complicated history of 2 different cardiac caths and angioplasties at [facility]. One of the stents failed and required some additional intervention. She had groin punctures in both the right and the left groin. The right side side developed a small AV fistula as well as a DVT of the profundus femoris vein. She reports a CTA showed a pulmonary embolism as well. She did have swelling of the right leg but it has gone down to normal. She presented to [facility] on January 16 with rectal bleeding. She had a colonoscopy this morning which suggested the source was an internal hemorrhoid with some ulceration. She has been taking Plavix as well as Eliquis. Her last dose of Plavix was this morning. She has not had Eliquis since morning which is 2 days ago. After her colonoscopy prep yesterday, she had multiple bloody stools through the night. However she has had no further BMs or bleeding since then. She is seen now in consultation regarding her hemorrhoid and rectal bleeding. The patient reports that she has infrequent stools, usually about 1 every 4 days. She has tried everything in the past in an attempt to be regular and more frequent BMs. None of these worked and many caused side effects of bloating and abdominal discomfort. She was told in the past she had hemorrhoids and saw a specialist physician about these. They were never bothering her and was told not to change anything or undergo any interventions. She really had no problems with hemorrhoids until she started having the rectal bleeding noted on admission two days ago. She is seen now in consultation. Review of Systems Review of Systems: All systems reviewed & are unremarkable except as noted in HPI and below Constitutional: Constitutional: Denies headache(s) ENT: Denies headache(s) Cardiovascular: Cardiovascular: Denies chest pain and Denies dyspnea Respiratory: Respiratory: Denies cough and Denies dyspnea Gastrointestinal: Gastrointestinal: Denies abdominal pain, Denies bloating, Reports hematochezia (See HPI), Denies constipation and Denies nausea Neurologic: Denies co
[2020-01-18] MEDS: METOPROLOL TARTRATE 12.5 MG TABLET PO ×2 (16:46→20:50)
[2020-01-18] MEDS: ASPIRIN 325 MG ENTERIC TABLET PO (16:47)
[2020-01-18] MEDS: ENOXAPARIN 30 MG/0.3 ML SYRINGE SUB-Q (21:01)
[2020-01-18] MEDS: ROSUVASTATIN 10 MG TABLET 40 MG PO (21:02)
[2020-01-18] MEDS: TRAZODONE HCL 50 MG TABLET PO (22:37)
[2020-01-19] VITALS (14 sets, daily range): BP systolic 100–126; BP diastolic 46–81; PULSE 66–95; RESP 16–20; TEMP 36.1–37.1; O2SAT 100
[2020-01-19 05:07] LABS: Hematocrit 25.1 % (37.0-47.0); Hemoglobin 8.2 g/dL (12.0-15.0); Mean Corpuscular HGB Conc 32.7 g/dl (32-36); Mean Corpuscular Hemoglobin 30.5 pg (26-34); Mean Corpuscular Volume 93.3 fl (80-100); Mean Platelet Volume 10.3 fl (7.4-10.4); Platelet Count Result 240 k/mm3 (150-375); Red Blood Count 2.69 M/mm3 (4.2-5.4); Red Cell Distribution Width 12.9 % (11.5-14.5); White Blood Count 6.4 K/mm3 (4.5-10.0)
[2020-01-19 05:24] LABS: Blood Urea Nitrogen 7 mg/dL (7-17); Calcium 9.1 mg/dL (8.4-10.2); Carbon Dioxide 23 mmol/L (22-30); Chloride 109 mmol/L (98-107); Estimated CRCL calculation 41 ml/min; Estimated Glomerular Filt Rate 51; Glucose 97 mg/dL (65-105); Potassium 4.1 mmol/L (3.4-5.0); Sodium 138 mmol/L (137-145)
--- NOTE | 2020-01-19 08:28 | WPDANESPN ---
Anes - Prog Note Post-Op Date/Time: 01/19/20 08:28 Cardiovascular status: normal Respiratory status: normal Airway patency: baseline Mental status: baseline Post-Op hydration status: normal Vital Signs: Last Vital Signs Temp 36.1 C L 01/19/20 04:00 Pulse 67 01/19/20 06:00 Resp 16 01/19/20 04:00 BP 100/52 L 01/19/20 04:00 Pulse Ox 100 01/19/20 04:00 I/O: Intake & Output 01/18/20 01/19/20 01/19/20 23:59 07:59 15:59 Intake Total 340 400 Output Total 1050 800 Balance -710 -400 Laboratory Tests 01/19/20 04:26 01/19/20 04:26 01/17/20 01/19/20 01/19/20 17:23 04:26 04:26 WBC 6.4 RBC 2.69 L Hgb 8.2 L Hct 25.1 L MCV 93.3 MCH 30.5 MCHC 32.7 RDW 12.9 Plt Count 240 MPV 10.3 Sodium 138 Potassium 4.1 Chloride 109 H Carbon Dioxide 23 BUN 7 Creatinine 1.10 H Estim Creat Clear Calc 41 Estimated GFR 51 L Glucose 97 Calcium 9.1 TSH (Reflex) 2.150 Post-procedural complaints: none Patient Feedback: Patient satisfied with anesthetic care.
[2020-01-19] MEDS: CLOPIDOGREL BISULFATE 75 MG TABLET PO (08:43)
[2020-01-19] MEDS: ENOXAPARIN 30 MG/0.3 ML SYRINGE SUB-Q ×2 (08:43→20:45)
[2020-01-19] MEDS: buPROPion HCL XL (24 HR) 150 MG TABCR 300 MG PO (08:43)
[2020-01-19] MEDS: METOPROLOL TARTRATE 12.5 MG TABLET PO ×2 (08:43→20:46)
[2020-01-19] MEDS: ASPIRIN 325 MG ENTERIC TABLET PO (08:44)
--- NOTE | 2020-01-19 09:00 | WPDGIPROGNO ---
Progress Note: A&P Additional Plan Patient alert and comfortable this morning. Denies rectal pain. No additional rectal bleeding. Physical exam alert. Abdomen is soft and nontender. Labs reveal hemoglobin 8.2, hematocrit 25.1, MCV 93. Impression 1. Internal hemorrhoids. Status post significant recent bleeding. Undoubtedly aggravated by anticoagulated status. Appreciate surgical follow-up. Agree with plans for conservative therapy and surgery of bleeding persists. 2. Atherosclerotic heart disease. Status post stent and angioplasty. 3. Recent pulmonary embolus by history. My understanding is that Patient to remain on anticoagulation. 4. AV fistula. At catheterization site. plan is for stool softeners and laxatives to maintain good bowel habits. Conservative therapy for hemorrhoids at this time. Surgery following. Subjective Date/time seen: 01/19/20 09:00 Objective Data Vital Signs Vital Signs: Vital Signs - 24 hr 01/18/20 09:20 01/18/20 09:41 01/18/20 10:00 Temperature 36.6 C Pulse Rate 82 85 101 H Respiratory Rate 20 Blood Pressure 128/74 Pulse Oximetry 100 01/18/20 12:00 01/18/20 14:00 01/18/20 15:56 Temperature 37.1 C 36.7 C Pulse Rate 95 103 H 96 Respiratory Rate 20 16 Blood Pressure 129/56 L 136/62 Pulse Oximetry 100 100 01/18/20 16:00 01/18/20 16:46 01/18/20 18:00 Temperature Pulse Rate 103 H 113 H 88 Respiratory Rate Blood Pressure Pulse Oximetry 01/18/20 19:34 01/18/20 20:00 01/18/20 20:50 Temperature 36.6 C Pulse Rate 72 80 78 Respiratory Rate 16 Blood Pressure 131/65 Pulse Oximetry 100 01/18/20 22:00 01/18/20 23:55 01/19/20 00:00 Temperature 36.3 C L Pulse Rate 87 87 73 Respiratory Rate 16 Blood Pressure 105/55 L Pulse Oximetry 100 01/19/20 01:57 01/19/20 04:00 01/19/20 06:00 Temperature 36.1 C L Pulse Rate 73 70 67 Respiratory Rate 16 Blood Pressure 100/52 L Pulse Oximetry 100 01/19/20 08:00 01/19/20 08:43 Temperature 37.1 C Pulse Rate 78 78 Respiratory Rate 20 Blood Pressure 113/46 L Pulse Oximetry 100 Intake/Output Intake/Output: Intake & Output 01/16/20 01/17/20 01/18/20 01/19/20 23:59 23:59 23:59 23:59 Intake Total 1000 1348 6460 400 Output Total 3650 2650 800 Balance 1000 -2302 3810 -400 Meds/Results Medications: Active Medications Generic Name Dose Route Start Last Admin Trade Name Freq PRN Reason Stop Dose Admin Alprazolam 0.25 mg 01/17/20 03:30 Xanax PO TID PRN anxiety Aspirin 325 mg 01/18/20 14:00 01/19/20 08:44 Aspirin Ec PO 325 mg QAM NAILA Administration Bupropion HCl 300 mg 01/17/20 09:00 01/19/20 08:43 Wellbutrin Xl (24 Hr) PO 300 mg DAILY NAILA Administration Clopidogrel Bisulfate 75 mg 01/17/20 09:00 01/19/20 08:43 Plavix PO 75 mg DAILY NAILA Administration Enoxaparin Sodium 30 mg 01/18/20 21:00 01/19/20 08:43 Lovenox SUB-Q 30 mg Q12HR NAILA Administration Metoprolol Tartrate 12.5 mg 01/18/20 14:00 01/19/20 08:43 Lopressor PO 12.5 mg Q12HR NAILA Administration Nitroglycerin 0.4 mg 01/17/20 03:30 Nitrostat Subl 0.4 Mg (1/150) SUBLINGUAL Q5MIN PRN Angina Ondansetron HCl 4 mg 01/18/20 02:13 01/18/20 02:28 Zofran Inj IV PUSH 4 mg Q6H PRN Administration Nausea And Vomiting Ropinirole HCl 1 mg 01/17/20 21:00 01/18/20 22:38 Requip PO Not Given HS NAILA Rosuvastatin Calcium 40 mg 01/17/20 21:00 01/18/20 21:02 Crestor PO 40 mg HS NAILA Administration Trazodone HCl 50 mg 01/17/20 03:30 01/18/20 22:37 Desyrel PO 50 mg HS PRN Administration Insomnia Radiology Results: ITS Impressions Chest X-Ray 01/16/20 18:06 IMPRESSION: 1. No acute cardiopulmonary abnormality. Venous Doppler Study 01/17/20 14:29 IMPRESSION: Lesser saphenous thrombosis. Labs Labs: Laboratory Results - last 24 hr
--- NOTE | 2020-01-19 12:04 | PM.PNGS ---
Progress Note: A&P Assessment and Plan (1) Bleeding internal hemorrhoids: Code(s): K64.8 - Other hemorrhoids Status: Acute Assessment and Plan: No bleeding now for [address] Grubbs. Will continue to hold Eliquis today. Start it back tomorrow and see if she has further bleeding. If does rebleed, would recommend hemorrhoidectomy. Dr. Grubbs does have a call into the vascular surgeon at [facility] to see if necessary to restart the Eliquis considering current venous Doppler does not show DVT. (2) Antiplatelet or antithrombotic long-term use: Code(s): Z79.02 - FPC (current) use of antithrombotics/antiplatelets Status: Acute Assessment and Plan: On Plavix and will be started on aspirin for now. (3) DVT (deep venous thrombosis): Code(s): I82.409 - Acute embolism and thrombosis of unspecified deep veins of unspecified lower extremity Status: Acute Assessment and Plan: Profundus femoris DVT on venous Doppler at [facility]. Possibly restart Eliquis tomorrow. (4) S/P PTCA (percutaneous transluminal coronary angioplasty): Code(s): Z98.61 - Coronary angioplasty status Status: Acute Assessment and Plan: Has maintained anti-platelet therapy. Subjective Subjective Date/Time Seen: 01/19/20 12:04 No complaints. No bowel movements. No rectal bleeding. Review of Systems Review of Systems: All systems reviewed & are unremarkable except as noted in HPI and below (HPI) Exam GI: GI Palp: Yes Soft to palpation and No Tenderness to palpation present (GI) Rectal Exam: External hemorrhoid(s) present (No change from yesterday) Objective Data Vital Signs Vital Signs: Vital Signs - 24 hr 01/18/20 14:00 01/18/20 15:56 01/18/20 16:00 Temperature 36.7 C Pulse Rate 103 H 96 103 H Respiratory Rate 16 Blood Pressure 136/62 Pulse Oximetry 100 01/18/20 16:46 01/18/20 18:00 01/18/20 19:34 Temperature 36.6 C Pulse Rate 113 H 88 72 Respiratory Rate 16 Blood Pressure 131/65 Pulse Oximetry 100 01/18/20 20:00 01/18/20 20:50 01/18/20 22:00 Temperature Pulse Rate 80 78 87 Respiratory Rate Blood Pressure Pulse Oximetry 01/18/20 23:55 01/19/20 00:00 01/19/20 01:57 Temperature 36.3 C L Pulse Rate 87 73 73 Respiratory Rate 16 Blood Pressure 105/55 L Pulse Oximetry 100 01/19/20 04:00 01/19/20 06:00 01/19/20 08:00 Temperature 36.1 C L 37.1 C Pulse Rate 70 67 71 Respiratory Rate 16 20 Blood Pressure 100/52 L 113/46 L Pulse Oximetry 100 100 01/19/20 08:43 01/19/20 10:00 Temperature Pulse Rate 78 74 Respiratory Rate Blood Pressure Pulse Oximetry Intake/Output Intake/Output: Intake & Output 01/16/20 01/17/20 01/18/20 01/19/20 23:59 23:59 23:59 23:59 Intake Total 1000 1348 6460 640 Output Total 3650 2650 1000 Balance 1000 -2302 3810 -360 Meds/Results Medications: Active Medications Generic Name Dose Route Start Last Admin Trade Name Freq PRN Reason Stop Dose Admin Alprazolam 0.25 mg 01/17/20 03:30 Xanax PO TID PRN anxiety Aspirin 325 mg 01/18/20 14:00 01/19/20 08:44 Aspirin Ec PO 325 mg QAM NAILA Administration Bupropion HCl 300 mg 01/17/20 09:00 01/19/20 08:43 Wellbutrin Xl (24 Hr) PO 300 mg DAILY NAILA Administration Clopidogrel Bisulfate 75 mg 01/17/20 09:00 01/19/20 08:43 Plavix PO 75 mg DAILY NAILA Administration Enoxaparin Sodium 30 mg 01/18/20 21:00 01/19/20 08:43 Lovenox SUB-Q 30 mg Q12HR NAILA Administration Metoprolol Tartrate 12.5 mg 01/18/20 14:00 01/19/20 08:43 Lopressor PO 12.5 mg Q12HR NAILA Administration Nitroglycerin 0.4 mg 01/17/20 03:30 Nitrostat Subl 0.4 Mg (1/150) SUBLINGUAL Q5MIN PRN Angina Ondansetron HCl 4 mg 01/18/20 02:13 01/18/20 02:28 Zofran Inj IV PUSH 4 mg Q6H PRN Administration Nausea And Vomiting Ropinirole H
[2020-01-19 12:55] LABS: Hematocrit 27.6 % (37.0-47.0); Hemoglobin 9.1 g/dL (12.0-15.0)
--- NOTE | 2020-01-19 13:14 | PM.IMPN ---
Progress Note: A&P Assessment and Plan (1) Acute GI bleeding: Code(s): K92.2 - Gastrointestinal hemorrhage, unspecified Status: Acute Assessment and Plan: The patient has had a recent LHC with NAYELI placed and recent diagnosis of right lower extremity DVT currently on Plavix and Eliquis admitted here for rectal bleeding. Has hx of hemoorhoids. Hgb 10.2 on admission and stable. Colonoscopy on 01/18/20 showing hemorrhoid with ulcer. Will continue Plavix and ASA until we settle on plans for appropriate anticoagulation/anti-plt therapy. General surgery following and discussed. (2) Chest pain: Code(s): R07.9 - Chest pain, unspecified Status: Acute Assessment and Plan: Patient has chronic chest pain not felt to be cardiac in nature. No evidence of acute coronary syndrome. Her troponins are negative x3. [facility] providers felt the SOB was related to deconditioning but did recommend PFTs. They did not feel this was related to PE. (3) Coronary artery disease: Code(s): I25.10 - Atherosclerotic heart disease of agdaag[place] coronary artery without angina pectoris Status: Acute Assessment and Plan: Chepe had a LHC 12/20/19 that showed severe calcified disease in the proximal and mid LAD requiring overlapping NAYELI placed at that time. Repeat C on 12/25/19 for CP showing occluded small septal boiler control room operator artery in the distal LAD. She has continued to have SOB. She is followed at [facility] and they did not feel the patient had a PE. We have continue her home Plavix here. The patient's Imdur, Metoprolol, Lisinopril and Norvasc were discontinued 3 days ago due to HoTN which was discussed with her physician. We have continued her Crestor. BP stable here. We have added back ASA. Metoprolol started and her HR much better controlled. PE felt less likely. More likely her SOB is related to anxiety. (4) DVT (deep venous thrombosis): Code(s): I82.409 - Acute embolism and thrombosis of unspecified deep veins of unspecified lower extremity Status: Acute Assessment and Plan: Patient seen on January 01 for right groin mass and found to have a right common femoral artery to vein AV fistula, right groin hematoma and a right deep femoral DVT extending to the origin of the common femoral vein. No apparent treatment for the fistula. She was started on Heparin and transitioned to Eliquis. Not felt to have a PE and no imaging was done. Discharged on 01/03/20 with plans for 3 months of treatment. Also plan for her to followup with vascular surgery for repeat US on 02/12/20. Here, we have placed the Eliquis on hold. Repeat Doppler showing patent right common femoral vein. Eliquis remaiins on hold. Discussed with General surgery. Will try Vascular surgery in the morning. (5) Anemia: Code(s): D64.9 - Anemia, unspecified Status: Acute Assessment and Plan: Hgb in November was 11.6 and 10.2 on admission. Iron studies, B12 and folate all are normal. Hgb 10 yesterday morning but now 8.2 without evidence of recurrent bleeding. Repeat Hgb at 9.1. Continue to monitor and transfuse as needed. (6) Anxiety: Code(s): F41.9 - Anxiety disorder, unspecified Status: Acute Assessment and Plan: Anxious with pressured speech but doubt she is manic. Currently on Wellbutrin scheduled and alprazolam prn. Continue to monitor for now. Subjective Date/time seen: 01/19/20 13:14 Interval history: 59yo female with know CAD with recent stent placement complicated by right femoral AV fistula and Rt femoral vein DVT currently on plavix and Eliquis here for rectal bleeding. No further rectal bleeding. Did have another episode of chest pain this morning while sleepinig. She is not sure if the pain woke her up from sleep or not. Pain was pressure and lasted about 15minutes. She did not inform the RN. She felt hot and sweaty but no nausea or SOB. This is a simila
--- NOTE | 2020-01-19 14:29 | PC.NURSE ---
This patient, Viri Toscano, was transferred to [facility] on 01/19/20 at 1425. Personal belongings sent with patient. Belongings list checked. Report given to Ivory BULLOCK. Appropriate documentation sent with patient.
--- NOTE | 2020-01-19 14:39 | PC.NURSE ---
Received patient from IMU. Patient in bed comfortable at this time with no complaints. Will continue to monitor patient.
[2020-01-19 18:20] LABS: Hematocrit 26.6 % (37.0-47.0); Hemoglobin 8.8 g/dL (12.0-15.0)
[2020-01-19] MEDS: ROSUVASTATIN 10 MG TABLET 40 MG PO (20:46)
[2020-01-19] MEDS: TRAZODONE HCL 50 MG TABLET PO (22:00)
[2020-01-20] VITALS (10 sets, daily range): BP systolic 117–130; BP diastolic 47–73; PULSE 66–80; RESP 16–18; TEMP 36–36.7; O2SAT 98–100
[2020-01-20 01:02] LABS: Hematocrit 26.8 % (37.0-47.0); Hemoglobin 8.8 g/dL (12.0-15.0)
[2020-01-20 05:31] LABS: Hematocrit 28.7 % (37.0-47.0); Hemoglobin 9.3 g/dL (12.0-15.0); Mean Corpuscular HGB Conc 32.4 g/dl (32-36); Mean Corpuscular Hemoglobin 30.4 pg (26-34); Mean Corpuscular Volume 93.8 fl (80-100); Mean Platelet Volume 10.3 fl (7.4-10.4); Platelet Count Result 273 k/mm3 (150-375); Red Blood Count 3.06 M/mm3 (4.2-5.4); Red Cell Distribution Width 12.7 % (11.5-14.5); White Blood Count 8.1 K/mm3 (4.5-10.0)
[2020-01-20 05:36] LABS: Blood Urea Nitrogen 13 mg/dL (7-17); Calcium 9.4 mg/dL (8.4-10.2); Carbon Dioxide 23 mmol/L (22-30); Chloride 104 mmol/L (98-107); Estimated CRCL calculation 33 ml/min; Estimated Glomerular Filt Rate 39; Glucose 103 mg/dL (65-105); Potassium 4.6 mmol/L (3.4-5.0); Sodium 137 mmol/L (137-145)
[2020-01-20] MEDS: METOPROLOL TARTRATE 12.5 MG TABLET PO (08:15)
[2020-01-20] MEDS: ASPIRIN 325 MG ENTERIC TABLET PO (08:15)
[2020-01-20] MEDS: CLOPIDOGREL BISULFATE 75 MG TABLET PO (08:15)
[2020-01-20] MEDS: ENOXAPARIN 30 MG/0.3 ML SYRINGE SUB-Q (08:15)
[2020-01-20] MEDS: buPROPion HCL XL (24 HR) 150 MG TABCR 300 MG PO (08:15)
[2020-01-20] MEDS: ALPRAZOLAM 0.25 MG TABLET PO (08:16)
--- NOTE | 2020-01-20 11:00 | PM.PNGS ---
Progress Note: A&P Assessment and Plan (1) Bleeding internal hemorrhoids: Code(s): K64.8 - Other hemorrhoids Status: Acute Assessment and Plan: Still no bleeding today. Okay to resume Eliquis from our standpoint if needed. Monitor for future bleeding and if this occurs, then would likely proceed with a hemorrhoidectomy by Dr. Galdamez. (2) Antiplatelet or antithrombotic long-term use: Code(s): Z79.02 - group home (current) use of antithrombotics/antiplatelets Status: Acute Assessment and Plan: On Plavix and aspirin. (3) DVT (deep venous thrombosis): Code(s): I82.409 - Acute embolism and thrombosis of unspecified deep veins of unspecified lower extremity Status: Acute Assessment and Plan: Profundus femoris DVT on venous Doppler at [facility]. Okay from a surgical standpoint to restart Eliquis today if needed. (4) S/P PTCA (percutaneous transluminal coronary angioplasty): Code(s): Z98.61 - Coronary angioplasty status Status: Acute Assessment and Plan: Has maintained anti-platelet therapy. Additional Plan Discussed plan of care with Dr. Galdamez. Subjective Subjective Date/Time Seen: 01/20/20 09:00 Patient reports: no new complaints, tolerating a regular diet, flatus and no bowel movement Interval history: Patient denies any complaints at this time. Denies any rectal bleeding. Reports flatus but no BM since admission. Reports feeling stronger today and more her normal. Review of Systems Review of Systems: All systems reviewed & are unremarkable except as noted in HPI and below Exam Const: General: comfortable, alert and awake GI: Inspection: normal to inspection and non-distended Auscultation: normoactive bowel sounds Rectal Exam: External hemorrhoid(s) present (no evidence of bleeding noted on exam) Skin: General skin exam: normal color Psych: Mental Status: mental status grossly normal Thought content: Yes Normal thought content present Insight: Good insight present (Psych) Judgement: Good judgement present (Psych) Objective Data Vital Signs Vital Signs: Vital Signs - 24 hr 01/19/20 12:00 01/19/20 14:00 01/19/20 16:00 Temperature 36.9 C Pulse Rate 76 95 71 Respiratory Rate 20 Blood Pressure 114/55 L Pulse Oximetry 100 01/19/20 18:00 01/19/20 20:00 01/19/20 20:46 Temperature 36.6 C Pulse Rate 72 84 82 Respiratory Rate 16 Blood Pressure 112/65 Pulse Oximetry 100 01/19/20 21:31 01/20/20 00:00 01/20/20 01:44 Temperature 36.4 C L 36.1 C L Pulse Rate 80 67 75 Respiratory Rate 18 18 Blood Pressure 126/81 117/73 Pulse Oximetry 100 100 01/20/20 04:00 01/20/20 06:00 01/20/20 08:00 Temperature 36.0 C L Pulse Rate 71 78 80 Respiratory Rate 18 Blood Pressure 123/58 L Pulse Oximetry 98 01/20/20 08:15 01/20/20 09:53 Temperature 36.6 C Pulse Rate 68 76 Respiratory Rate 16 Blood Pressure 130/47 L Pulse Oximetry 99 Intake/Output Intake/Output: Intake & Output 01/17/20 01/18/20 01/19/20 01/20/20 23:59 23:59 23:59 23:59 Intake Total 1348 6460 1240 370 Output Total 3650 2650 1000 250 Balance -2302 3810 240 120 Meds/Results Medications: Active Medications Generic Name Dose Route Start Last Admin Trade Name Freq PRN Reason Stop Dose Admin Alprazolam 0.25 mg 01/17/20 03:30 01/20/20 08:16 Xanax PO 0.25 mg TID PRN Administration anxiety Aspirin 325 mg 01/18/20 14:00 01/20/20 08:15 Aspirin Ec PO 325 mg QAM NAILA Administration Bupropion HCl 300 mg 01/17/20 09:00 01/20/20 08:15 Wellbutrin Xl (24 Hr) PO 300 mg DAILY NAILA Administration Clopidogrel Bisulfate 75 mg 01/17/20 09:00 01/20/20 08:15 Plavix PO 75 mg DAILY NAILA Administration Enoxaparin Sodium 30 mg 01/18/20 21:00 01/20/20 08:15 Lovenox SUB-Q 30 mg Q12HR NAILA Administration Metoprolol Tartrate 12.5 mg 01/18/20 14:00 01/20/20 08:15 Lopressor PO 12.5 mg
--- NOTE | 2020-01-20 15:34 | PM.DS ---
DS: Diagnosis Admitting Diagnosis Admitting Diagnosis: Gastrointestinal hemorrhage, unspecified Discharge Diagnosis (1) Acute GI bleeding: Code(s): K92.2 - Gastrointestinal hemorrhage, unspecified Status: Acute Assessment and Plan: The patient has had a recent heart cath with NAYELI placed and recent diagnosis of right lower extremity DVT currently on Plavix and Eliquis admitted here for rectal bleeding. Has hx of hemoorhoids. Hgb 10.2 on admission but dropped to 8-9 range. Colonoscopy on 01/18/20 showing hemorrhoid with ulcer. Patijonyn was maintained on her Plavix and ASA added after the colonoscopy which she tolerated without evidence of re-bleeding. General surgery followed along. (2) Chest pain: Code(s): R07.9 - Chest pain, unspecified Status: Acute Assessment and Plan: Patient has complaints of chronic, daily chest pain not felt to be cardiac in nature. No evidence of acute coronary syndrome. Her troponins are negative x3. [facility] providers felt the SOB was related to deconditioning but did recommend PFTs. They did not feel this was related to PE. (3) Coronary artery disease: Code(s): I25.10 - Atherosclerotic heart disease of iliam[place] coronary artery without angina pectoris Status: Acute Assessment and Plan: Patient had a LHC 12/20/19 that showed severe calcified disease in the proximal and mid LAD requiring overlapping NAYELI placed at that time. Repeat LHC on 12/25/19 for CP showing occluded small septal merchandising lead artery in the distal LAD. She has continued to have SOB. She is followed at [facility] and they did not feel the patient had a PE. We have continue her home Plavix here. The patient's Imdur, Metoprolol, Lisinopril and Norvasc were discontinued 3 days ago due to HoTN which was discussed with her physician. We have continued her Crestor. BP stable here and were able to add back Metoprolol. Discussed with her Cardilogist. Plan to resume Eliquis and have her keep her follow up with Cardiology and with Vascular. (4) DVT (deep venous thrombosis): Code(s): I82.409 - Acute embolism and thrombosis of unspecified deep veins of unspecified lower extremity Status: Acute Assessment and Plan: Patient seen on January 01 for right groin mass and found to have a right common femoral artery to vein AV fistula, right groin hematoma and a right deep femoral DVT extending to the origin of the common femoral vein. No apparent treatment for the fistula. She was started on Heparin and transitioned to Eliquis. Not felt to have a PE but no imaging was done. Discharged home on 01/03/20 with plans for 3 months of treatment. Also plan for her to followup with vascular surgery for repeat US on 02/12/20. Here, we have placed the Eliquis on hold but continued the Plavix. We did add ASA as we monitored her for risk of rebleeding. Repeat right leg Doppler showing patent right common femoral vein. No evidence of rebleeding. General Surgery felt patietn could safely go back on Eliquis so this will be resumed. Discussed with her Nutrition Representative. Also discussed with patient in detail. She should take her Eliquis starting tonight (5) Anemia: Code(s): D64.9 - Anemia, unspecified Status: Acute Assessment and Plan: Hgb in November was 11.6 and Hgb 10.2 on admission. Iron studies, B12 and folate all are normal. Hgb dropped to 8-9 range and stable. No evidence of recurrent bleeding. She did not require a transfusion here. (6) Anxiety: Code(s): F41.9 - Anxiety disorder, unspecified Status: Acute Assessment and Plan: Anxious with pressured speech at times. TSH normal. We continued her Wellbutrin scheduled and alprazolam prn. Continue to monitor for now. DS: Summary Hospital Course Reason for hospitalization: 59yo female here for rectal bleeding. Please see H&P for details. Hospital Course: As above Time Spent with Patient Ti
== END 2020-01-20 17:20 | disposition home or self-care (01) | DRG 394 ==
LOC: ANHED 18:59 → ANHIMU 20:33 → ANH2MED 01-19 14:34
PROVIDERS: Internal Medicine Gastroenterology; Admitting Provider Hospitalist; Emergency Provider Emergency Medicine; PCP Family Medicine; Visit Provider Internal Medicine
PROC: 0DJD8ZZ Inspection of Lower Intestinal Tract, Via Natural or Artificial Opening Endoscopic (ICD-10-PCS; CPT 45378; principal; 2020-01-18 08:00)
DX: K64.8 Other hemorrhoids (principal); I82.811 Embolism and thrombosis of superficial veins of right lower extremity; K62.5 Hemorrhage of anus and rectum; T45.515A Adverse effect of anticoagulants, initial encounter; K57.30 Diverticulosis of large intestine without perforation or abscess without bleeding; I25.10 Atherosclerotic heart disease of native coronary artery without angina pectoris; D64.9 Anemia, unspecified; F41.1 Generalized anxiety disorder; F32.9 Major depressive disorder, single episode, unspecified; K21.9 Gastro-esophageal reflux disease without esophagitis; G25.81 Restless legs syndrome; I10 Essential (primary) hypertension; F90.2 Attention-deficit hyperactivity disorder, combined type; M81.0 Age-related osteoporosis without current pathological fracture; Z79.02 Long term (current) use of antithrombotics/antiplatelets; Z87.11 Personal history of peptic ulcer disease; Z90.49 Acquired absence of other specified parts of digestive tract; Z95.5 Presence of coronary angioplasty implant and graft; Z87.891 Personal history of nicotine dependence
CPT/HCPCS: 36415; 71046; 80048; 80053; 81001; 82607; 82728; 82746; 83540; 83550; 83735; 84443; 84484; 85014; 85018; 85025; 85027; 85610; 85730; 86850; 86900; 86901; 93971; 96360; 96361; 96374; 99285; A9270; G0378; J1650; J2405; J2704; J7120

== ENCOUNTER 2020-05-07 09:07 | Outpatient (CLI) | payer OTHER, SELFPAY ==
--- NOTE | ~2020-05-07 | NM_ITS ---
EXAMINATION: NM britta stress w perfusion DATE: 05/07/2020 11:39 INDICATION: Dyspnea TECHNIQUE: Rest images were obtained following intravenous administration of 10 mCi Tc99m tetrofosmin (Myoview). The patient was infused intravenously with Lexiscan (Regadenoson). Then, 30 mCi Tc99m tet rofosmin (Myoview) was administered intravenously, and stress images were obtained. Data was reconstr ucted into short axis and horizontal and vertical long axis SPECT images. Gated SPECT images were als o obtained. COMPARISON: None. FINDINGS: There is no definite reversible or fixed perfusion abnormality to suggest ischemia or infar ction. There is normal left ventricular chamber size, wall motion and ejection fraction. Left ventr icular ejection fraction measures >70%. IMPRESSION: 1. Normal myocardial perfusion at rest and during stress. 2. Left ventricular ejection fraction measuring >70%. Reviewed, dictated and finalized at location A.
--- NOTE | 2020-05-07 09:47 | EST_ITS ---
Patient Info Name: Viri Toscano Age: 59 years : 1960 Gender: Female Ht: 63 in Wt: 117 lbs BSA: 1.54 m2 Exam Date: 05/07/2020 10:37 AM Exam Location: [facility] Patient Status: Outpatient Admit Date: 05/07/2020 Staff Ordering Physician: Lauren Puga PA-C Attending Provider: Lauren Puga PA-C Exercise Technologist: Elisha Alonso RDCS Exercise Physician: Rajseh Hsu DO Exam Type: CA stress britta w NM Study Info Indications R06.00 - Dyspnea, unspecified A regadenoson stress test was performed. Summary 1. 1. Negative Lexiscan stress test for ischemic ST changes by ECG criteria. 2. 2. Stable hemodynamics throughout the test. 3. 3. Nuclear scan to follow and will be reported separately. Please correlate with it. 4. 4. Patient informed of the above results. Protocol: Lexiscan Stress ECG Details Stage: REST Duration (min): 4 min : 7 sec HR (bpm): 64 SBP (mmHg): 128 DBP (mmHg): 80 Stage: REST Duration (min): 12 min : 32 sec HR (bpm): 71 SBP (mmHg): 128 DBP (mmHg): 80 Stage: STAGE 1 Duration (min): 0 min : 59 sec HR (bpm): 91 SBP (mmHg): 167 DBP (mmHg): 87 Stage: RECOVERY Duration (min): 1 min : 0 sec HR (bpm): 106 SBP (mmHg): 143 DBP (mmHg): 78 Stage: RECOVERY Duration (min): 2 min : 0 sec HR (bpm): 98 SBP (mmHg): 143 DBP (mmHg): 78 Stage: RECOVERY Duration (min): 3 min : 0 sec HR (bpm): 101 SBP (mmHg): 143 DBP (mmHg): 73 Stage: RECOVERY Duration (min): 4 min : 0 sec HR (bpm): 92 SBP (mmHg): 143 DBP (mmHg): 73 Stage: RECOVERY Duration (min): 4 min : 41 sec HR (bpm): 94 SBP (mmHg): 140 DBP (mmHg): 78 Rest HR: 71 bpm Peak HR: 108 bpm Rest Sys BP: 128 mmHg Peak Sys BP: 167 mmHg Max Pred HR: 163 bpm % Max Pred HR: 66 % Target HR: 139 bpm Max RPP: 18,036 bpm*mmHg Termination Reason: Completed protocol Cardiac Symptoms: Shortness of breath Total Time: 1 min : 0 sec Rest Gates BP: 80 mmHg Peak Gates BP: 87 mmHg Total Dose: 0.4 mg Resting ECG Sinus rhythm. Stress ECG No ST changes. Arrhythmias None. Report Signatures
== END 2020-05-07 09:08 | disposition home or self-care (01) ==
LOC: ANHCARD 09:13
PROVIDERS: PCP Family Medicine; Visit Provider Physician Assistant
DX: R06.00 Dyspnea, unspecified (principal)
CPT/HCPCS: 78452; 93017; A9502; J2785

== ENCOUNTER 2020-05-19 10:30 | Outpatient (CLI) | payer OTHER, SELFPAY ==
--- NOTE | 2020-05-25 15:41 | WPDPFTINT ---
PFT Interpretation PFT Interpretation: DOS: 05/19/2020 REQUESTING: ANGELINA Mitchell REASON FOR TESTING: Dyspnea on exertion PULMONARY FUNCTION TESTS Results are reliable and reproucible. Spirometry: FEV1 84%, 1.89 L, normal. FVC 96%, normal. FEV1% is decreased 65%, decreased. IWS18-46% is severely decreased at 30% predicted. No bronchodilator was given. Lung volumes: TLC 106%, normal. Slow vital capacity 101%, normal. RV/TLV increased consistent with air trapping. Airway resistance 197%< increased. Diffusion: DLCO 60%, moderately decreased. Flow volume loop: Scooping of the expiratory limb. IMPRESSION: Decreased flow in the small airways, mild air trapping, increased airway resistance, and moderate diffusion impairment. No bronchodilator was given. This pattern is consistent with an obstructive process. A trial of bronchodilator can be considered. Charlene George MD
== END 2020-05-19 10:31 | disposition home or self-care (01) ==
PROVIDERS: PCP Family Medicine; Visit Provider Physician Assistant
DX: R06.00 Dyspnea, unspecified (principal); R94.2 Abnormal results of pulmonary function studies
CPT/HCPCS: 94375; 94726; 94729

== ENCOUNTER 2020-08-03 18:00 | Outpatient (RCR) | payer OTHER, SELFPAY ==
[2020-05-08 15:05] VITALS: PULSE 68
[2020-06-17 19:23] LABS: Glucose Point of Care 44 (65-105)
[2020-06-17 19:23] LABS: Glucose Point of Care 139 (65-105)
--- NOTE | 2020-07-01 14:08 | PCCPR ---
Absent due to sleep study Viri called states she is to do asleep study tonight and did not think she would be able to come in tonight. She is not certain about tomorrow evening and will let us know if she will not make it.
[2020-07-23 17:44] LABS: Glucose Point of Care 54 (65-105)
[2020-07-23 17:44] LABS: Glucose Point of Care 106 (65-105)
== END 2020-08-03 23:59 | disposition home or self-care (01) ==
LOC: ANHCPREHAB 18:00
PROVIDERS: PCP Family Medicine
DX: Z95.5 Presence of coronary angioplasty implant and graft (principal)
CPT/HCPCS: 93798

== ENCOUNTER 2020-11-28 19:26 | Emergency (ER) | payer OTHER, SELFPAY ==
[2020-11-28 19:31] VITALS: BP 132/75; PULSE 97; RESP 18; TEMP 36.6; O2SAT 100
--- NOTE | 2020-11-28 19:42 | ED.EPISTAXIS ---
HPI - Epistaxis General Chief complaint: Epistaxis Stated complaint: noce bleed Time Seen by Provider: 11/28/20 19:33 Source: patient Mode of arrival: ambulatory Limitations: no limitations History of Present Illness HPI Narrative: A 60-year-old female presents to the emergency department with complaints of a nosebleed. Patient states that the bleed started around 1630 this afternoon. She does note that she is on blood thinners, clopidogrel. Patient states that she has never had a nosebleed before. She denies any trauma to the area. She denies any pain in her nose. Related Data Home Medications Medication Instructions Recorded Confirmed clopidogrel 75 mg PO DAILY 12/23/19 07/24/20 nitroglycerin 0.4 mg SUBLINGUAL Q5MIN PRN 12/23/19 07/24/20 aspirin [Aspirin Low Dose] 81 mg PO DAILY 05/08/20 08/11/20 metoprolol succinate 50 mg PO DAILY 05/08/20 08/11/20 tiotropium bromide [Spiriva with 1 cap INHALATION DAILY 08/11/20 08/11/20 HandiHaler] Allergies Allergy/AdvReac Type Severity Reaction Status Date / Time No Known Allergies Allergy Verified 11/28/20 19:34 Review of Systems Review of Systems: Narrative: CONSTITUTIONAL: Denies fever, chills, or sweats. EYES: Denies visual changes, redness, or discharge. ENT: Denies rhinorrhea, congestion, sore throat, or otalgia. Endorses epistaxis CARDIOVASCULAR: Denies chest pain, palpitations, or edema. RESPIRATORY: Denies cough or dyspnea. GASTROINTESTINAL: Denies abdominal pain, nausea, vomiting, or diarrhea. GENITOURINARY: Denies dysuria or hematuria. SKIN: Denies rash or itching. MUSCULOSKELETAL: Denies back pain, joint pain, or myalgia. NEUROLOGIC: Denies headache, numbness, dizziness, or weakness. PSYCHIATRIC: Denies anxiety or depression. [facility] Past Medical History Medical History Age-related osteoporosis without current pathological fracture Anosmia Anxiety Attention deficit hyperactivity disorder (ADHD), combined type Bone necrosis of mandible Calculus of ureter Coronary artery disease Depression Disordered sleep Essential (primary) hypertension Generalized anxiety disorder GERD (gastroesophageal reflux disease) Hypercholesterolemia Hypertension Insomnia Iron deficiency anemia secondary to blood loss (chronic) Peritoneal adhesions (postprocedural) (postinfection) Rectal polyp Restless leg syndrome Supraventricular tachycardia Ulcer Surgical History Surgical History History of cholecystectomy History of partial gastrectomy History of Turner-en-Y gastric bypass Due to gastric outlet obstruction 1999 complicated by peritonitis, prolonged intubation and open postoperative wound Hx of tonsillectomy S/P PTCA (percutaneous transluminal coronary angioplasty) 12/20/2019 with a stent to the proximal mid and distal LAD. She had residual narrowing of the small 1st septal mold insert changer artery and small 1st diagonal branch and occlusion of small septal perforating artery in the mid LAD. She had continued to have chest pain and elevated troponin and was referred to have a repeat slight divot angiography on 12/25/2019. With repeat catheterization demonstrating mild narrowing of the left main coronary artery of 35%, LAD ostial narrowing of 35%, mild narrowing within the stented portion of less than 30%, small 1st septal mold insert changer artery with 60-70% proximal narrowing where it exits the stented area, occluded septal mold insert changer artery, is delayed filling of the distal portion of the septal mold insert changer artery, large 1st diagonal branch with 45% narrowing small 2nd diagonal branch 60-70% narrowing where it exits stented region, left circumflex has 35-40% ostial narrowing, right coronary artery has 35-40% narrowing just distal to the SA node branch with remainder of the artery having less than or equal to 30% with recommended medical therapy Stented coronary artery Family History
[2020-11-28] MEDS: OXYMETAZOLINE HCL 0.05% NAS 15 ML BTL (*BKC) 2 SPRAY NASAL (19:46)
--- NOTE | 2020-11-28 20:49 | PC.NURSE ---
Patient's nose stopped bleeding at this time. Nose clamp removed. ERP notified.
[2020-11-28] MEDS: SILVER NITRATE (*SP) STICK 1 EACH TOPICAL (21:18)
[2020-11-28 21:42] VITALS: BP 115/70; PULSE 75; RESP 18; O2SAT 100
== END 2020-11-28 21:43 | disposition home or self-care (01) ==
PROVIDERS: Emergency Provider Emergency Medicine; PCP Family Medicine
DX: R04.0 Epistaxis (principal); I25.10 Atherosclerotic heart disease of native coronary artery without angina pectoris; I10 Essential (primary) hypertension; K21.9 Gastro-esophageal reflux disease without esophagitis; E78.00 Pure hypercholesterolemia, unspecified; D50.9 Iron deficiency anemia, unspecified; G25.81 Restless legs syndrome; M81.0 Age-related osteoporosis without current pathological fracture; Z87.19 Personal history of other diseases of the digestive system; Z79.82 Long term (current) use of aspirin; Z79.02 Long term (current) use of antithrombotics/antiplatelets
CPT/HCPCS: 30901; 99282; A9270

== ENCOUNTER 2021-09-21 12:42 | Outpatient (CLI) | payer OTHER, SELFPAY ==
--- NOTE | ~2021-09-21 | DEXA_ITS ---
Bone Density Report Name: Viri Toscano Age: 61 Sex: Female Ethnicity: White Date of : 1960 Indication: osteopenia; height loss; prior fracture; postmenopausal Referring Provider: ELISABET SANCHEZ Study: Bone densitometry was performed. Exam Date: September 21, 2021 Accession number: [id number] Bone Density: Region BMD T-score Z-score Classification AP Spine (L1-L4) 0.879 -1.5 -0.2 Osteopenia Femoral Neck (Left) 0.564 -2.6 -1.3 Osteoporosis Total Hip (Left) 0.655 -2.4 -1.5 Osteopenia Total Hip Bilateral Avg 0.659 -2.4 -1.5 Osteopenia Femoral Neck (Right) 0.529 -2.9 -1.6 Osteoporosis Total Hip (Right) 0.662 -2.3 -1.4 Osteopenia World Health Organization criteria for BMD impression classify patients as: Normal (T-score at or above -1.0), Osteopenia (T-score between -1.0 and -2.5), or Osteoporosis (T-score at or below -2.5). 10-year Fracture Risk: FRAX not reported because: Some T-score for Spine Total or Hip Total or Femoral Neck at or below -2.5 Prior hip or vertebral fracture Previous Exams: Region Exam Age BMD T-score BMD Change BMD Change Date g/cm2 vs Baseline vs Previous AP Spine(L1-L4) 09/21/2021 61 0.879 -1.5 0.039(4.7%)* 0.039(4.7%)* 11/25/2016 56 0.840 -1.9 Total Hip(Left) 09/21/2021 61 0.655 -2.4 0.005(0.7%) 0.005(0.7%) 11/25/2016 56 0.650 -2.4 Total Hip(Right) 09/21/2021 61 0.662 -2.3 -0.020(-3.0%) -0.020(-3.0%) 11/25/2016 56 0.682 -2.1 *Denotes significance at 95% confidence level, LSC for AP Spine = 0.022 g/cm2, LSC for Total Hip = 0.027 g/cm2 Clinical Information Provided by Patient: Have had a previous hip or vertebral fracture Has had a low trauma fracture Patient maximum height was 63 Menopause Age: 54 Does not regularly consume dairy products Onset of menses at age 15 Number of children 1 Impression: The patient has established osteoporosis, based on the Right Femoral Neck T-score and the existence of a prior fracture. The patient has risk factors, including: previous fracture. No significant bone loss was observed. Discussion: HIGH RISK OF FRACTURE. BONE DENSITY IS UNDESIRABLY LOW AT ONE OR MORE SKELETAL SITES, CONSISTENT WITH POSTMENOPAUSAL OSTEOPOROSIS. This patient's lowest T-score, in a patient who has previously fractured, meets the World Health Organization's (WHO) criteria for severe osteoporosis. In untreated patients, the risk of osteoporotic fracture increases approximately two-fold f
== END 2021-09-21 12:43 | disposition home or self-care (01) ==
LOC: ANHIMG 12:43
PROVIDERS: PCP Family Medicine; Visit Provider Family Medicine
DX: Z78.0 Asymptomatic menopausal state (principal); M81.0 Age-related osteoporosis without current pathological fracture; M85.88 Other specified disorders of bone density and structure, other site
CPT/HCPCS: 77080

== ENCOUNTER 2024-02-16 12:59 | Outpatient (CLI) | payer OTHER, SELFPAY ==
--- NOTE | ~2024-02-16 | DEXA_ITS ---
Bone Density Report Name: PATRICIA HAYES Age: 63 Sex: Female Ethnicity: White Date of : 1960 Indication: osteopenia; monitoring treatment; height loss; prior fracture; Referring Provider: ELISABET SANCHEZ Study: Bone densitometry was performed. Exam Date: February 16, 2024 Accession number: [id number] Bone Density: Region BMD T-score Z-score Classification AP Spine(L1-L4) 0.847 -1.8 -0.3 Osteopenia Femoral Neck (Left) 0.586 -2.4 -1.0 Osteopenia Total Hip (Left) 0.735 -1.7 -0.7 Osteopenia Femoral Neck (Right) 0.495 -3.2 -1.8 Osteoporosis Total Hip (Right) 0.703 -2.0 -0.9 Osteopenia Total Hip Mean 0.719 -1.9 -0.8 Osteopenia World Health Organization criteria for BMD impression classify patients as: Normal (T-score at or above -1.0), Osteopenia (T-score between -1.0 and -2.5), or Osteoporosis (T-score at or below -2.5). 10-year Fracture Risk: FRAX not reported because: Some T-score for Spine Total or Hip Total or Femoral Neck at or below -2.5 Prior hip or vertebral fracture Treated for osteoporosis Previous Exams: Region Exam Age BMD T-score BMD Change BMD Change Date g/cm2 vs Baseline vs Previous AP Spine (L1-L4) 02/16/2024 63 0.847 -1.8 0.007 (0.8%)# -0.033 (-3.7%) 09/21/2021 61 0.879 -1.5 0.039 (4.7%)* 0.039 (4.7%)* 11/25/2016 56 0.840 -1.9 Total Hip(Left) 02/16/2024 63 0.735 -1.7 0.085 (13.0%)# 0.080 (12.2%)# 09/21/2021 61 0.655 -2.4 0.005 (0.7%) 0.005 (0.7%) 11/25/2016 56 0.650 -2.4 Total Hip(Right) 02/16/2024 63 0.703 -2.0 0.021 (3.0%)# 0.041 (6.2%)# 09/21/2021 61 0.662 -2.3 -0.020 (-3.0%) -0.020 (-3.0%) 11/25/2016 56 0.682 -2.1 *Denotes significance at 95% confidence level, LSC for AP Spine = 0.022 g/cm2, LSC for Total Hip = 0.027 g/cm2 # Denotes dissimilar scan types or analysis methods Clinical Information Provided by Patient: Have had a previous hip or vertebral fracture Has had a low trauma fracture Is being treated for osteoporosis Has used the following medications: Prolia (i.e. denosumab), Vitamin D Patient maximum height was 63.5 Menopause Age: 54 Does not regularly consume dairy products Onset of menses at age 15 Number of children 1 Impression: The patient has established osteoporosis, based on the Right Femoral Neck T-score and the existence of a prior fracture. The patient has risk factors, including: previous fracture. No significant bone loss was observed. Discussion: PATIENT UNDER TREATMENT WITH NO SIGNIFICANT BMD LOSS SINCE LAST EXAM. In an untreated patient, BMD typically declines with age. A lack of decline or gain is usually a sign that treatment is efficacious and fracture risk is reduced. It is important to ask patients whether they are taking their medications and to encourage continued and appropriate compliance with their osteoporosis therapies to reduce fracture risk. It is also important to review their risk factors and encourage appropriate calcium and vitamin D intakes, exercise, fall prevention and other lifestyle measures. Follow-Up: Consider a repeat BMD and Vertebral Fracture Assessment (VFA) exam in 2 years or sooner if medically necessary, to reassess this patient's status. Reported by: FARAZ on 02/16/2024 1:26:00 PM. Reviewed, dictated and finalized at location [facility]TER
== END 2024-02-16 13:00 | disposition home or self-care (01) ==
LOC: ANHIMG 12:59
PROVIDERS: PCP Family Medicine; Visit Provider Family Medicine
DX: M81.0 Age-related osteoporosis without current pathological fracture (principal); Z78.0 Asymptomatic menopausal state
CPT/HCPCS: 77080

== ENCOUNTER 2025-01-31 09:47 | Outpatient (CLI) | payer OTHER, SELFPAY ==
--- NOTE | 2025-01-31 09:37 | EST_ITS ---
Patient Info Name: Viri Toscano Age: 64 years : 1960 Gender: Female Ht: 63 in Wt: 112 lbs BSA: 1.50 m2 Exam Date: 01/31/2025 10:59 AM Exam Location: Echo Lab Patient Status: Outpatient Admit Date: 01/31/2025 Staff Ordering Physician: Kumar Morris MD [place] Clerk: Elisha Alonso RDCS Attending Provider: Kumar Morris MD Referring Physician: Arturo TREVINO; Exercise Physician: Rajesh Hsu DO Exam Type: CA stress echo Study Info Indications I20.9 - Angina pectoris, unspecified Dobutamine stress echocardiogram is performed. Summary 1. 1. Negative Wilberto exercise stress test for ischemic ST changes by ECG criteria. However, patient achieved only 77% MPHR for age group which reduces sensitivity of the test. 2. 2. Reduced functional capacity, achieving 6.5 METs of workload. 3. 3. Hypertensive response to exercise. 4. 4. Appropriate HR response to exercise. 5. 5. Appropriate HR recovery at 1 minute post exercise. 6. 6. Negative stress echocardiogram for ischemia by wall motion analysis. 7. 7. Patient informed of the above results. Stress Echo Findings Left Ventricle Appropriate increase in LV endocardial thickening with systole. Appropriate augmentation of contractility with systole. No wall motion abnormality. Left Ventricle Normal LV systolic function, no wall motion abnormality. Protocol: Wilberto Stress ECG Details Stage: REST Duration (min): 1 min : 16 sec Speed (mph): 0.0 Grade (%): 0 HR (bpm): 56 SBP (mmHg): 147 DBP (mmHg): 82 METS: --- Stage: REST Duration (min): 12 min : 30 sec Speed (mph): 0.0 Grade (%): 0 HR (bpm): 60 SBP (mmHg): 147 DBP (mmHg): 82 METS: --- Stage: STAGE 1 Duration (min): 1 min : 0 sec Speed (mph): 1.7 Grade (%): 10 HR (bpm): 100 SBP (mmHg): 147 DBP (mmHg): 82 METS: --- Stage: STAGE 1 Duration (min): 2 min : 0 sec Speed (mph): 1.7 Grade (%): 10 HR (bpm): 118 SBP (mmHg): 147 DBP (mmHg): 82 METS: --- Stage: STAGE 1 Duration (min): 3 min : 0 sec Speed (mph): 1.7 Grade (%): 10 HR (bpm): 114 SBP (mmHg): 180 DBP (mmHg): 102 METS: --- Stage: STAGE 2 Duration (min): 1 min : 0 sec Speed (mph): 2.5 Grade (%): 12 HR (bpm): 118 SBP (mmHg): 180 DBP (mmHg): 102 METS: --- Stage: STAGE 2 Duration (min): 1 min : 7 sec Speed (mph): 0.0 Grade (%): 0 HR (bpm): 118 SBP (mmHg): 180 DBP (mmHg): 102 METS: --- Stage: RECOVERY Duration (min): 0 min : 53 sec Speed (mph): 0.0 Grade (%): 0 HR (bpm): 93 SBP (mmHg): 228 DBP (mmHg): 51 METS: --- Stage: RECOVERY Duration (min): 1 min : 53 sec Speed (mph): 0.0 Grade (%): 0 HR (bpm): 78 SBP (mmHg): 228 DBP (mmHg): 51 METS: --- Stage: RECOVERY Duration (min): 2 min : 53 sec Speed (mph): 0.0 Grade (%): 0 HR (bpm): 74 SBP (mmHg): 228 DBP (mmHg): 51 METS: --- Stage: RECOVERY Duration (min): 3 min : 53 sec Speed (mph): 0.0 Grade (%): 0 HR (bpm): 72 SBP (mmHg): 207 DBP (mmHg): 67 METS: --- Stage: RECOVERY Duration (min): 4 min : 53 sec Speed (mph): 0.0 Grade (%): 0 HR (bpm): 68 SBP (mmHg): 207 DBP (mmHg): 67 METS: --- Stage: RECOVERY Duration (min): 5 min : 53 sec Speed (mph): 0.0 Grade (%): 0 HR (bpm): 69 SBP (mmHg): 169 DBP (mmHg): 70 METS: --- Stage: RECOVERY Duration (min): 6 min : 53 sec Speed (mph): 0.0 Grade (%): 0 HR (bpm): 67 SBP (mmHg): 145 DBP (mmHg): 71 METS: --- Stage: RECOVERY Duration (min): 7 min : 9 sec Speed (mph): 0.0 Grade (%): 0 HR (bpm): 69 SBP (mmHg): 145 DBP (mmHg): 71 METS: --- Rest HR: 60 bpm Peak HR: 122 bpm Rest Sys BP: 147 mmHg Peak Sys BP: 228 mmHg Max Pred HR: 158 bpm % Max Pred HR: 77 % Target HR: 134 bpm Max RPP: 27,816 bpm*mmHg [place] Score: 0 BP Response: Patient exhibited a hypertensive response with stress Termination Reason: Reached target heart rate or workload Cardiac Symptoms: Shortness of breath Max ST Seg Deviation: 0.90 mm Total Time: 4 min : 7 sec Rest Gates BP: 82 mmHg Peak Gates BP: 51 mmHg Angina Score: None Total METS: 6.5 Resting ECG Sinus rhythm. Stress ECG No ST changes. Arrhythmias None. Report Signatures Stress ECG Echo
--- OUTSIDE RECORDS SUMMARY | 2025-01-31 10:05 | XMS_ITS | Encounter Summary ---
Author Organization [facility] Address [address] [place] [address] Phone Care Team Providers Care Enterprise Integration Developer Name Role Phone Kumar Morris MD Primary Care Provider [phone] Encounter Details Date Type Department Care Team (Late st Contact Info) Description 01/13/2025 Results Follow-Up [facility] [address] [facility] Medical Office Building [address] [place] [address] Sosa Whitlock MD [address] [facility] [address] [place] [address] Social History Tobacco Use Types Packs/Day Years Used Date Smoking Tobacco: Former Cigarettes 1 25 1 983 - 2007 Smokeless Tobacco: Never Alcohol Use Standard Drinks/Week Comments Never 0 (1 standard drink = 0.6 oz pur e alcohol) AUDIT-C Answer Date Recorded Frequency of Alcohol Consumption Never 12/16/2019 Average Number of Drinks Not on file 020 Frequency of Binge Drinking Not on file 11/30 Comments No Sex and Gender Information Value Date Recorded Sex Assigned at Not on file Legal Sex Female 2:38 AM LENS INSERTER Gender Identity Female 10/06/2020 7:28 AM LENS INSERTER Sexual Orientation Straight 10/06/2020 7: 28 AM LENS INSERTER documented as of this encounter Miscellaneous Notes * Result Encounter Note - Sosa Whitlock MD - 01/13/2025 12:44 PM CDT Sent Venaxis message. (PTH, CMP and 24 hour urine calcium and creatinine next visit) Neal Jovel As you can see, PTH has improved with normal calcium. I recommend to continue with calcium 2854-4134 mg on daily basis. We will repeat these levels in your next appointment. documented in this encounter Plan of Treatment Not on file documented as of this encounter Visit Diagnoses Not on filedocumented in this encounter Care Teams Enterprise Integration Developer Relationship Specialty Start Date End Date Kumar Morris MD PCP - General 02/15/17 documented as of this encounter
--- OUTSIDE RECORDS SUMMARY | 2025-01-31 10:05 | XMS_ITS | Referral Summary ---
Author Organization [facility] Address [address] [place] [address] Care Team Providers Care Hide Or Skin Buffer Name Role Phone Kumar Morris MD Primary Care Provider [phone] Encounters Date Type Department Care Team Description 01/13/2025 Results Follow-Up [facility] [address] [facility] Medical Office Building [address] [place] [id number] Sosa Whitlock MD 12/27/2024 8:30 AM SENIOR FOREMAN Lab [facility] [address] [facility] 1st [place] [address] Age-related osteoporosis without current pathological fracture from Last 3 Months Allergies No known active allergies Medications multivitamin capsule Take 1 capsule by mouth daily Active buPROPion XL (WELLBUTRIN XL) 300 mg 24 hr tablet 02/01/2020 Active rOPINIRole (REQUIP) 1 mg tablet 01/17/2020 Active metoprolol XL (TOPROL-XL) 100 mg 24 hr tablet Take 0.5 tablets (50 mg total) by mouth daily 04/27/2020 Active rosuvastatin (CRESTOR) 10 mg tablet Take 1 tablet (10 mg total) by mouth daily Active cholecalciferol (Vitamin D3) 5,000 unit tablet 08/01/2022 Active traMADoL (ULTRAM) 50 mg tablet Take by mouth every 6 (six) hours as needed 09/28/2023 Active denosumab (PROLIA) 60 mg/mL syringe Inject 1 mL (60 mg total) under the skin every 6 (six) months Active Active Problems Problem Noted Date Diagnosed Date DVT (deep venous thrombosis) 01/02/2020 Assessment & Plan (01/03/2020 11:37 AM SENIOR FOREMAN): Provoked R femoral vein DVT post-catheterization, with right common femoral [id number] AV fistula per outside study. No neurovascular deficits. - heparin ggt, consider transition to PO - 3/5 Doppler signals demonstrating continuous flow pattern at the right External Iliac and Common Femoral veins. lower extremity venous duplex: no evidence of acute deep vein thrombosis in the lower extremities bilaterally, No evidence of AVF in the right lower extremity. ?Consider proximal obstruction -vascular surgery consulted, recommended surveillance imaging CAD (coronary artery disease) 12/24/2019 Assessment & Plan (01/02/2020 4:19 PM SENIOR FOREMAN): Stress test with postexercise inferior-lateral hypokinesis, consistent with ischemia in the RCA/LCx territory. [facility] 12/20 with DESx2 placed in LAD. [facility] 12/25 with occluded small septal freight hustler in the distal LAD, moderate narrowings of the small 1st septal freight hustler artery and the small 2nd diagonal branch where they exit the stented regions of the LAD. -cont aspirin 81, plavix 75, rosuvastatin 40 Assessment & Plan (12/24/2019 1:30 AM SENIOR FOREMAN): Had 2 NAYELI overlapping in LAD on 12/20 for chest pain and stress test that showed postexercise inferior-lateral hypokinesis, which was consistent with ischemia in the right coronary artery/circumflex territory Trop 0.47, prior unknown, likely due to recent PCI. EKG normal sinus rhythm - trend troponin - cont aspirin 81, plavix 75, rosuvastatin 40 - TTE, telemetry Coronary artery disease invo lving tejon heart with angina pectoris 12/23/2019 Overview (12/25/2019): Added automatically from request for surgery [id number] Precordial pain 12/16/2019 Hypertension 12/16/2019 Assessment & Plan (01/02/2020 3:28 PM SENIOR FOREMAN): Continue home Lisinopril 20 mg daily and metoprolol XL 100 mg BID Assessment & Plan (12/24/2019 1:31 AM SENIOR FOREMAN): - continue home Lisinopril 20 mg daily and metoprolol XL 100 mg BID SVT (supraventricular tachycardia) 12/16/2019 Assessment & Plan (12/24/2019 1:31 AM SENIOR FOREMAN): Has frequent episodes of palpitations, relieved by vagal maneuvers. HR usually not over 120. Received adenosine in 2005 for HR 300s. - metoprolol XL 100 mg BID - ordered TSH/FT4 - tele Dyspnea on exertion 12/16/2019 Assessment & Plan (01/03/2020 11:38 AM SENIOR FOREMAN): Patient presents with long history of dyspnea of exertion likely seoncdary to stent detention vs microvascular disease vs PE -ischemic work up negative this admission -heparin ggt for possible PE -01/01 TTE Normal LV and RV size and systolic function. No significant valvular abnormalities noted. LA is normal. Normal Inferior vena cava. Normal aorta. Less likely clinically significant PE given no RV strain, defer CT PE Elective surgery 12/06/2017 Fat pad 12/04/2017 Skin wrinkling 12/04/2017 Palpitations 02/22/2017 External hemorrhoids 12/05/2016 Hemorrhoids 12/05/2016 Arthralgia of hip 11/21/2016 Encounter for preventive health examination 03/30 Chronic obstructive pulmonary disease Immunizations Immunization Administration Dates Next Due COVID-19 mRNA (PFIZER) 0.3 m L (30 mcg) vaccine (12 years and up) 07/30/2024 Influenza, Trivalent, Cell C ulture-based MDCK, Preservative Free, Antibiotic Free, Intramuscular 07/30/2024 Influenza, Unspecified 07/14/2020,07/30/2019 Pfizer SARS-CoV-2 Monovalent Vaccination (12+ Yrs) PURPLE 11/17/2020,10/27/2020 Social History Tobacco Use Types Packs/Day Years Used Date Smoking Tobacco: Former Cigarettes 1 25 1 983 - 2008 Smokeless Tobacco: Never Alcohol Use Standard Drinks/Week [...] on file Legal Sex Female 2:38 AM SENIOR FOREMAN Gender Identity Female 10/06/2020 7:28 AM SENIOR FOREMAN Sexual Orientation Straight 10/06/2020 7: 28 AM SENIOR FOREMAN Last Filed Vital Signs Vital Sign Reading Time Taken Comments Blood Pressure 161/67 12/26/2023 2:56 PM SENIOR FOREMAN Pulse 61 12/26/2023 2:56 PM SENIOR FOREMAN Temperature 36.6 C (97.8 F) 12/26/2023 2:56 PM SENIOR FOREMAN Respiratory Rate 18 12/26/2023 2:56 PM SENIOR FOREMAN Oxygen Saturation 99% 12/26/2023 2:56 PM SENIOR FOREMAN Inhaled Oxygen Concentration - - Weight 51.7 kg (114 lb) 06/21/2024 2:15 PM CDT Height 158.1 cm (5' 2.25 ) 06/21/2024 2:15 PM CD T Body Mass Index 20.68 06/21/2024 2:15 PM CDT Plan of Treatment Not on file Medical Devices Implanted Type Area Surveillance Systems Analyst Device Identifier Shelf Expiration Date Model / Serial / Lot [employer] [id number] Synergy 3mm 38mm 144cm Radiopaque 1 Access Port Inflation Lumen - [id number] Implanted:Qty: 1 on 12/20/2019 by Dominic Montelongo MD at [facility] [employer] 09/01/2021 [id number] 300 / / [id number] [employer] [id number] Synergy 3mm 24mm 144cm Radiopaque 1 Access Port Inflation Lumen - [id number] Implanted:Qty: 1 on 12/20/2019 by Dominic Montelongo MD at [facility] [employer] Rama 06/11/2021 [id number] 300 / / [id number] [employer] [id number] Angio-Seal Evolution 6fr .035in Guidewire Bypass Tube Suture - [id number] Implanted:Qty: 1 on 12/20/2019 by Dominic Montelongo MD at [facility] [employer] 07/29/2020 [id number] / / [id number] Procedures Procedure Name Priority Date/Time Associated Diagnosis Comments EGFR Routine 12/27/2024 8:33 AM SENIOR FOREMAN Age-related osteoporosis without current pathological fracture COMPREHENSIVE METABOLIC PANEL Routine 12/27/2024 8:33 AM SENIOR FOREMAN Age-related osteoporosis without current pathological fracture PTH Routine 12/27/2024 8:33 AM SENIOR FOREMAN Age-related osteoporosis without current pathological fracture SCREENING MAMMOGRAM BILATERAL W SAURABH Schedule Routine, Read Routine (OP Routine) 06/19/2023 11:59 AM CDT Screening mammogram, encounter for CT LUNG CANCER SCREENING Schedule Routine, Read Routine (OP Routine) 11/02/2021 2:25 PM SENIOR FOREMAN Encounter for screening for malignant neoplasm of respiratory organs from Last 3 Months or Most Recently Relevant to Health Maintenance Results * eGFR (12/27/2024 8:33 AM SENIOR FOREMAN) eGFR 73 >=60 mL/min/1. 73 m2 Comment: Interpretive Data Reference Interval Normal >/= 90 mL/min/1.73m2 Mildly decreased* 60 - 89 mL/min/1.73m2 Mildly to moderately decreased 45 - 59 mL/min/1.73m2 Moderately to severely decreased 30 - 44 mL/min/1.73m2 Severely decreased 15 - 29 mL/min/1.73m2 Kidney Failure < 15 mL/min/1.73m2 *Relative to young adult level Estimated glomerular filtration rate is determined by the 2020 CKD-EPI equation recommended by the National Kidney Foundation (A Unifying Approach to GFR Estimation: Recommendations of the NKF-ASK Task Force on Reassessing the Inclusion of Race in Diagnosing Kidney Disease, JASN 2020). The CKD-EPI equation should not be used for patients with unstable renal function and has not been validated in children and those over 70. Current interpretive data was last reviewed 2021. Blood 12/27/2024 8:33 AM SENIOR FOREMAN 12/27/2024 8:55 AM SENIOR FOREMAN Sosa Whitlock MD LAB BLOOD ORDERABLES Final Re sult [facility] [place] [address] * (ABNORMAL) PTH (12/27/2024 8:33 AM SENIOR FOREMAN) Pathologist [facility] PTH 78(H) 15 - 65 pg/mL Blood 12/27/2024 8:33 AM SENIOR FOREMAN 12/27/2024 8:54 AM SENIOR FOREMAN Sosa Whitlock MD LAB BLOOD ORDERABLES Edited R esult - Final Performing Organization Address [facility] Co de Phone Number [facility] [place] [address] * (ABNORMAL) Comprehensive metabolic panel (12/27/2024 8:33 AM SENIOR FOREMAN) [facility] Sodium 145 135 - 145 mmol/L Potassium, pl 4.5 3.3 - 4.9 mmol/L [facility] Chloride 108 97 - 110 mmol/L [facility] CO2 28 22 - 32 mmol/L [facility] Anion gap 9 2 - 15 mmol/L [facility] BUN 14 6 - 25 mg/dL [facility] Creatinine 0.89 0.60 - 1.10 mg/dL [facility] Glucose 94 70 - 199 mg/dL [facility] Comment: Interpretive Data Fasting glucose >/= 126 mg/dl is diagnostic for diabetes. Fasting is defined as no caloric intake for at least 8 hours. Fasting glucose between 100 mg/dl to 125 mg/dl is diagnostic of prediabetes. In a patient with classic symptoms of hyperglycemia or hyperglycemic crisis, a random glucose >/= 200 mg/dl is diagnostic for diabetes. In the absence of unequivocal hyperglycemia, results should be confirmed by repeat testing. The classification and Diagnosis of Diabetes Diabetes Care 2021; 46: S19-S40. Current interpretive data was last revised 2022. Calcium 9.7 8.5 - 10.3 mg/dL [facility] Bilirubin, total 0.3 0.1 - 1.2 mg/dL [facility] Protein, pl 7.2 6.5 - 8.5 g/dL [facility] Albumin 4.1 3.5 - 5.0 g/dL [facility] Alk phos 77 40 - 130 Units/L [facility] ALT 49(H) 7 - 45 Units/L [facility] AST 58(H) 10 - 45 Units/L [facility] Blood 12/27/2024 8:33 AM SENIOR FOREMAN 12/27/2024 8:55 AM SENIOR FOREMAN us Sosa Whitlock MD LAB BLOOD ORDERABLES Final Re sult [facility] [place] [address] * Screening Mammogram Bilateral W Saurabh (06/19/2023 11:59 AM CDT) Anatomical Region Laterality Modality Breast Bilateral Mammography Narrative 06/21/2023 11:57 AM CDT Mammogram Technique: Bilateral Digital Breast Tomosynthesis, Bilateral C-view 2D Screening mammogram. Views obtained: bilateral craniocaudal and bilateral mediolateral oblique. Computer Aided Detection was performed. Mammogram Findings: The present examination has been compared to prior imaging studies performed at [facility] on 01/16/2012, 06/13/2013 and 02/11/2021. There are scattered areas of fibroglandular density. There is no suspicious abnormality in either breast. Impression: There is no mammographic evidence of malignancy. Annual screening mammography is recommended. OVERALL FINAL ASSESSMENT: BI-RADS CATEGORY 1: Negative. Procedure Note Melody Shay MD - 06/21/2023 Mammogram Technique: Bilateral Digital Breast Tomosynthesis, Bilateral C-view 2D Screening mammogram. Views obtained: bilateral craniocaudal and bilateral mediolateral oblique. Computer Aided Detection was performed. Mammogram Findings: The present examination has been compared to prior imaging studies performed at [facility] on 01/16/2012, 06/13/2013 and 02/11/2021. There are scattered areas of fibroglandular density. There is no suspicious abnormality in either breast. Impression: There is no mammographic evidence of malignancy. Annual screening mammography is recommended. OVERALL FINAL ASSESSMENT: BI-RADS CATEGORY 1: Negative. us Self Screening Mammogram IMG MAMMO PROCEDURES Fi nal Result * CT Lung Cancer Screening (11/02/2021 2:25 PM SENIOR FOREMAN) Anatomical Region Laterality Modality Chest N/A Computed Tomogra phy 11/02/2021 2:54 PM SENIOR FOREMAN Impressions 11/02/2021 2:54 PM SENIOR FOREMAN 1. LungRADS Category 2 (benign) . Recommend FU LDCT in 1 Year. 2. Since the patient has some pleuroparenchymal inflammation or scarring in the right lower lobe that is new compared to 07/21/2020, consideration should be getting to a follow-up CT in less and one year. For example, depending on the clinical scenario, six-month follow-up could be considered. LungRADS Categories: 1 - Negative (no nodules, or only benign calcified or fat-containing nodules) 2 - Benign Appearance or Behavior (nodules with very low likelihood of becoming a clinically active cancer due to size or lack of growth) 3 - Probably Benign (probably benign findings-short term follow up suggested; includes nodules with a low likelihood of becoming a clinically active cancer) 4A,4B,4X - Suspicious (category 3 or 4 nodules with findings for which additional diagnostic testing and/or tissue sampling is recommended) S - Other (clinically significant or potentially clinically significant findings (non-lung cancer) C - Prior Lung Cancer (modifier for patients with a prior diagnosis of lung cancer who return to screening) Electronically signed by: Eros Louis M.D. Narrative 11/02/2021 2:54 PM SENIOR FOREMAN EXAMINATION: Lung cancer screening CT of the Chest without intravenous contrast HISTORY: Lung Cancer Screening TECHNIQUE: Low radiation dose chest protocol. No intravenous contrast. Reconstructed slice width 1.[address] Dose Index 0.56 mGy. Dose-length product 20.4 mGy-cm. COMPARISON: . Tomography of 07/21/2020. FINDINGS: Lung nodules or findings of lung cancer: 3 mm groundglass nodule in the right upper lobe, image 66 of series 5. Smoking related lung disease: none Other findings: Pleuroparenchymal scarring in both lung apices, similar to the prior exam. Additional pleuroparenchymal scarring is seen in the right lower lobe just above the diaphragm, centered on table position 211.2. This is new compared to the prior examination, and could represent more recent infection or inflammation in this area. Atherosclerotic changes of the aorta and coronary arteries seen. There is no pericardial effusion. There is no pleural effusion. Upper abdomen demonstrates changes of cholecystectomy, and a peripheral 7 mm calcification in the lateral aspect of the left kidney. Bones: Mild degenerative changes of the thoracic spine. Additionally, there is some linear scarring in the medial segment of the right middle lobe, which is stable. Procedure Note Eros Louis MD - 11/02/2021 EXAMINATION: Lung cancer screening CT of the Chest without intravenous contrast HISTORY: Lung Cancer Screening TECHNIQUE: Low radiation dose chest protocol. No intravenous contrast. Reconstructed slice width 1.[address] Dose Index 0.56 mGy. Dose-length product 20.4 mGy-cm. COMPARISON: . Tomography of 07/21/2020. FINDINGS: Lung nodules or findings of lung cancer: 3 mm groundglass nodule in the right upper lobe, image 66 of series 5. Smoking related lung disease: none Other findings: Pleuroparenchymal scarring in both lung apices, similar to the prior exam. Additional pleuroparenchymal scarring is seen in the right lower lobe just above the diaphragm, centered on table position 211.2. This is new compared to the prior examination, and could represent more recent infection or inflammation in this area. Atherosclerotic changes of the aorta and coronary arteries seen. There is no pericardial effusion. There is no pleural effusion. Upper abdomen demonstrates changes of cholecystectomy, and a peripheral 7 mm calcification in the lateral aspect of the left kidney. Bones: Mild degenerative changes of the thoracic spine. Additionally, there is some linear scarring in the medial segment of the right middle lobe, which is stable. IMPRESSION: 1. LungRADS Category 2 (benign) . Recommend FU LDCT in 1 Year. 2. Since the patient has some pleuroparenchymal inflammation or scarring in the right lower lobe that is new compared to 07/21/2020, consideration should be getting to a follow-up CT in less and one year. For example, depending on the clinical scenario, six-month follow-up could be considered. LungRADS Categories: 1 - Negative (no nodules, or only benign calcified or fat-containing nodules) 2 - Benign Appearance or Behavior (nodules with very low likelihood of becoming a clinically active cancer due to size or lack of growth) 3 - Probably Benign (probably benign findings-short term follow up suggested; includes nodules with a low likelihood of becoming a clinically active cancer) 4A,4B,4X - Suspicious (category 3 or 4 nodules with findings for which additional diagnostic testing and/or tissue sampling is recommended) S - Other (clinically significant or potentially clinically significant findings (non-lung cancer) C - Prior Lung Cancer (modifier for patients with a prior diagnosis of lung cancer who return to screening) Electronically signed by: Eros Louis M.D. Eric Alvarenga MD IMG CT PROCEDURES Final Resu lt from Last 3 Months or Most Recently Relevant to Health Maintenance [id number]US [facility] CHOICE PLUS EMPLOYEES EMPLOYEES Advance Directives For more information, please contact: [phone] * Full Code (Latest Code Status on File) Date Activated Date Inactivated Comments 01/02/2020 2:31 PM 01/03/2020 10:51 PM * Full Code Date Activated Date Inactivated Comments 12/23/2019 8:16 PM 12/25/2019 7:36 PM * Full Code Date Activated Date Inactivated Comments 12/20/2019 2:10 PM 12/20/2019 9:42 PM Care Teams Hide Or Skin Buffer Relationship Specialty Start Date End Date Kumar Morris MD PCP - General 02/15/17
--- OUTSIDE RECORDS SUMMARY | 2025-01-31 10:05 | XMS_ITS | Continuity of Care Document ---
Author Organization [facility] Address [address] [place] [address] Phone Care Team Providers Care [employer] Rep Name Role Phone Audi Law DO Unavailable Unavailable Advance Directives Directive Yes / No Effective Date File Name No Information Encounters Encounter Description Practice Location Reason(s) For Visit Diagnoses Date Provider Providers Copied on Encounter [facility], [address], [place], [place], [id number], [place] [phone] [facility] No Information Ain Dobbs. [address] [place], [address], [place]. tel: [phone] Family History Family Member Type Diagnosis Age At Onset No Information Payers Payer name Insurance type Covered constitution party ID Authoriza tion(s) No Information Social History Type Description Quantity Date Captured Comments Sex Female Smoking Status No Information Chief Complaint And Reason For Visit No Information Reason For Referral Reason For Referral No Information History Of Present Illness Encounter Date Complaint History Of Prese nt Illness No Information Functional Status Date Functional Assessmen t No Information Instructions Date Instruction Additional Infor mation No Information Assessments Type Assessment Date No Information Patient Care Teams Name Effective Dates (start - stop) Status Members No Information
--- OUTSIDE RECORDS SUMMARY | 2025-01-31 10:05 | XMS_ITS | Encounter Summary ---
Author Organization [facility] Address [address] [place] [address] Phone Care Team Providers Care Hoist Cylinder Loader Name Role Phone Kumar Morris MD Primary Care Provider [phone] Encounter Details Date Type Department Care Team (Latest Contact Info) Description 09/14/2020 Orders Only [facility] Scanning, Provider Social History Tobacco Use Types Packs/Day Years Used Date Smoking Tobacco: Former Cigarettes - 2008 Smokeless Tobacco: Never Alcohol Use [...] on file Legal Sex Female 2:38 AM FREIGHT TEAM ASSOCIATE Gender Identity Female 10/06/2020 7:28 AM FREIGHT TEAM ASSOCIATE Sexual Orientation Straight 10/06/2020 7: 28 AM FREIGHT TEAM ASSOCIATE documented as of this encounter Plan of Treatment Not on file documented as of this encounter Procedures Procedure Name Priority Date/Time Associated Diagnosis Comments SLEEP LAB/STUDY - RESULT 09/14/2020 documented in this encounter Results * SLEEP LAB/STUDY - RESULT (09/14/2020) us Provider Scanning Final Result documented in this encounter Visit Diagnoses Not on filedocumented in this encounter Care Teams Hoist Cylinder Loader Relationship Specialty Start Date End Date Kumar Morris MD PCP - General 02/15/17 documented as of this encounter
--- OUTSIDE RECORDS SUMMARY | 2025-01-31 10:05 | XMS_ITS | Clinical Summary ---
Author Organization [facility] al Address [address] [place] [address] Care Team Providers Care Hospital Superintendent Name Role Phone Kumar Morris MD Primary Care Provider [phone] Allergies No known active allergies Medications multivitamin [...] 01/02/2020 Assessment & Plan (01/03/2020 11:37 AM INSURANCE ASSISTANT): Provoked R femoral vein DVT post-catheterization, with right common femoral [id number] AV fistula per outside study. No neurovascular [...] 12/24/2019 Assessment & Plan (01/02/2020 4:19 PM INSURANCE ASSISTANT): Stress test with postexercise inferior-lateral hypokinesis, consistent with ischemia in the RCA/LCx territory. [facility] 12/20 with DESx2 placed in LAD. [facility] 12/25 with occluded small septal completions manager in the distal LAD, moderate narrowings of the small 1st septal completions manager artery and the small 2nd diagonal branch where they exit the stented regions of the LAD. -cont aspirin 81, plavix 75, rosuvastatin 40 Assessment & Plan (12/24/2019 1:30 AM INSURANCE ASSISTANT): Had 2 NAYELI overlapping in LAD on 12/20 for chest pain and stress test that showed postexercise inferior-lateral hypokinesis, which was consistent with ischemia in the right coronary artery/circumflex territory Trop 0.47, prior unknown, likely due to recent PCI. EKG normal sinus rhythm - trend troponin - cont aspirin 81, plavix 75, rosuvastatin 40 - TTE, telemetry Coronary artery disease invo lving [place] heart with angina pectoris 12/23/2019 Overview (12/25/2019): Added automatically from request for surgery [id number] Precordial pain 12/16/2019 Hypertension 12/16/2019 Assessment & Plan (01/02/2020 3:28 PM INSURANCE ASSISTANT): Continue home Lisinopril 20 mg daily and metoprolol XL 100 mg BID Assessment & Plan (12/24/2019 1:31 AM INSURANCE ASSISTANT): - continue home Lisinopril 20 mg daily and metoprolol XL 100 mg BID SVT (supraventricular tachycardia) 12/16/2019 Assessment & Plan (12/24/2019 1:31 AM INSURANCE ASSISTANT): Has frequent episodes of palpitations, relieved by vagal maneuvers. HR usually not over 120. Received adenosine in 2005 for HR 300s. - metoprolol XL 100 mg BID - ordered TSH/FT4 - tele Dyspnea on exertion 12/16/2019 Assessment & Plan (01/03/2020 11:38 AM INSURANCE ASSISTANT): Patient presents with long history of dyspnea of exertion likely seoncdary to stent chcf vs microvascular disease vs PE -ischemic work [...] health examination 03/30 Chronic obstructive pulmonary disease Encounters Date Type Department Care Team Description 01/13/2025 Results Follow-Up [facility] [address] [facility] [address] [place] [address] Sosa Whitlock MD 12/27/2024 8:30 AM INSURANCE ASSISTANT Lab [facility] [address] [facility] 1st [place] [address] Age-related osteoporosis without current pathological fracture from Last 3 Months Immunizations Immunization Administration Dates Next Due COVID-19 mRNA (Kuotus) 0.3 m L (30 mcg) vaccine (12 years and up) 07/30/2024 Influenza, Trivalent, Cell C ulture-based MDCK, Preservative Free, Antibiotic Free, Intramuscular 07/30/2024 Influenza, Unspecified 07/14/2020,07/30/2019 Pfizer SARS-CoV-2 Monovalent Vaccination (12+ Yrs) PURPLE 11/17/2020,10/27/2020 Surgical History Surgery Date Site/Laterality Comments PARTIAL GASTRECTOMY 10/30/1999 - 10/29/2000 APPENDECTOMY ESOPHAGOGASTRODUODENOSCOPY SECTION CYST REMOVAL from throat CARLOS-EN-Y PROCEDURE Medical History Medical History Date Comments Hypertension SVT (supraventricular tachycardia) Osteoporosis Hyperlipidemia Family History Medical History Relation Name Comments Cancer Father Family history of malignant neoplasm - (Added by TW Conv) Hypertension Father Family history of hypertension - (Added by TW Conv) COPD Mother Heart attack Mother Heart disease Mother Family history of cardiac disorder - (Added by TW Conv) Lung disease Mother Family history of lung disease - (Added by TW Conv) Stroke Mother Family history of cerebrovascular accident (CVA) - (Added by TW Conv) Coronary artery disease Mother's Brother carotid disease Sister Broken bones Neg Hx Hip fracture Neg Hx Kyphosis Neg Hx Osteoporosis Neg Hx Scoliosis Neg Hx Relation Name Status Comments Father Mother Mother's Brother Sister Social History Tobacco Use Types Packs/Day Years Used Date Smoking Tobacco: Former Cigarettes 2007 Smokeless Tobacco: Never Alcohol Use Standard [...] on file Legal Sex Female 2:38 AM INSURANCE ASSISTANT Gender Identity Female 10/06/2020 7:28 AM INSURANCE ASSISTANT Sexual Orientation Straight 10/06/2020 7: 28 AM INSURANCE ASSISTANT Obstetrics History Last Filed Vital Signs Vital Sign Reading Time Taken Comments Blood Pressure 161/67 12/26/2023 2:56 PM INSURANCE ASSISTANT Pulse 61 12/26/2023 2:56 PM INSURANCE ASSISTANT Temperature 36.6 C (97.8 F) 12/26/2023 2:56 PM INSURANCE ASSISTANT Respiratory Rate 18 12/26/2023 2:56 PM INSURANCE ASSISTANT Oxygen Saturation 99% 12/26/2023 2:56 PM INSURANCE ASSISTANT Inhaled Oxygen Concentration - - Weight 51.7 kg (114 lb) 06/21/2024 2:15 PM CDT Height 158.1 cm (5' 2.25 ) 06/21/2024 2:15 PM CD T Body Mass Index 20.68 06/21/2024 2:15 PM CDT Plan of Treatment Health Maintenance Due Date Last Done Comments Cervical Cancer Screening 1962 Colon Cancer Screening-Colonoscopy 1962 Depression Screening 1962 Hepatitis C Screening 1962 DTaP/Tdap/Td Vaccine (1 - Tdap) 1973 Hepatitis B Screening 1980 Regular Well Visit/Exam 18-64 1980 Pneumococcal vaccine <65 (1 of 2 - PCV) 1981 Zoster Vaccine (1 of 2) 2012 Lung Cancer Screening 05/16/2023 11/02/2021 Breast Cancer Screening-Mammogram 06/19/2024 06/19/2023, 02/11/2021, 06/13/2013 Covid-19 Vaccine Completed 07/30/2024, 06/2021, 11/17/2020, Additional history exists Influenza Vaccine Completed 07/30/2024, , 07/30/2019 Medical Devices Implanted Type Area Student Accounts Manager Device Identifier Shelf Expiration Date Model / Serial / Lot [employer] [id number] Synergy 3mm 38mm 144cm Radiopaque 1 Access Port Inflation Lumen - [id number] Implanted:Qty: 1 on 12/20/2019 by Dominic Montelongo MD at [facility] Stent [employer] 09/01/2021 [id number] 300 / / [id number] [employer] [id number] Synergy 3mm 24mm 144cm Radiopaque 1 Access Port Inflation Lumen - [id number] Implanted:Qty: 1 on 12/20/2019 by Dominic Montelongo MD at [facility] [employer] 06/11/2021 [id number] 300 / / [id number] [employer] [id number] Angio-Seal Evolution 6fr .035in Guidewire Bypass Tube Suture - [id number] Implanted:Qty: 1 on 12/20/2019 by Dominic Montelongo MD at [facility] [employer] 07/29/2020 [id number] / / [id number] Procedures Procedure Name Priority Date/Time Associated Diagnosis Comments EGFR Routine 12/27/2024 8:33 AM INSURANCE ASSISTANT Age-related osteoporosis without current pathological fracture COMPREHENSIVE METABOLIC PANEL Routine 12/27/2024 8:33 AM INSURANCE ASSISTANT Age-related osteoporosis without current pathological fracture PTH Routine 12/27/2024 8:33 AM INSURANCE ASSISTANT Age-related osteoporosis without current pathological fracture SCREENING MAMMOGRAM BILATERAL W SAURABH Schedule Routine, Read Routine (OP Routine) 06/19/2023 11:59 AM CDT Screening mammogram, encounter for CT LUNG CANCER SCREENING Schedule Routine, Read Routine (OP Routine) 11/02/2021 2:25 PM INSURANCE ASSISTANT Encounter for screening for malignant neoplasm of respiratory organs from Last 3 Months or Most Recently Relevant to Health Maintenance Results * eGFR (12/27/2024 8:33 AM INSURANCE ASSISTANT) eGFR 73 >=60 mL/min/1. 73 m2 Comment: [...] last reviewed 2021. Blood 12/27/2024 8:33 AM INSURANCE ASSISTANT 12/27/2024 8:55 AM INSURANCE ASSISTANT us Sosa Whitlock MD LAB BLOOD ORDERABLES Final Re sult [facility] Department [place] [address] * (ABNORMAL) PTH (12/27/2024 8:33 AM INSURANCE ASSISTANT) PTH 78(H) 15 - 65 pg/mL Blood 12/27/2024 8:33 AM INSURANCE ASSISTANT 12/27/2024 8:54 AM INSURANCE ASSISTANT Sosa Whitlock MD LAB BLOOD ORDERABLES Edited R esult - Final [facility] Department [place] [address] * (ABNORMAL) Comprehensive metabolic panel (12/27/2024 8:33 AM INSURANCE ASSISTANT) Sodium 145 135 - 145 mmol/L Potassium, pl 4.5 3.3 - 4.9 mmol/L [facility] Chloride 108 97 - 110 mmol/L [facility] CO2 28 22 - 32 mmol/L [facility] Anion gap 9 2 - 15 mmol/L [facility] BUN 14 6 - 25 mg/dL [facility] Creatinine 0.89 0.60 - 1.10 mg/dL [facility] Glucose 94 70 - 199 mg/dL [facility] Comment: Interpretive Data Fasting glucose >/= 126 [...] classification and Diagnosis of Diabetes Diabetes Care 202; 46: S19-S40. Current interpretive data was last revised 2022. Calcium 9.7 8.5 - 10.3 mg/dL [facility] Bilirubin, total 0.3 0.1 - 1.2 mg/dL [facility] Protein, pl 7.2 6.5 - 8.5 g/dL [facility] Albumin 4.1 3.5 - 5.0 g/dL [facility] Alk phos 77 40 - 130 Units/L [facility] ALT 49(H) 7 - 45 Units/L [facility] AST 58(H) 10 - 45 Units/L [facility] Blood 12/27/2024 8:33 AM INSURANCE ASSISTANT 12/27/2024 8:55 AM INSURANCE ASSISTANT Sosa Whitlock MD LAB BLOOD ORDERABLES Final Re s[facility] Department [place] [address] * Screening Mammogram Bilateral W Saurabh (06/19/2023 11:59 AM CDT) Anatomical Region Laterality Modality Breast Bilateral Mammography Narrative 06/21/2023 11:57 AM CDT Mammogram Technique: Bilateral Digital Breast Tomosynthesis, Bilateral C-view 2D Screening mammogram. Views obtained: bilateral craniocaudal and bilateral mediolateral oblique. Computer Aided Detection was performed. Mammogram Findings: The present examination has been compared to prior imaging studies performed at [facility] on 01/16/2012, 06/13/2013 and 02/11/2021. There are [...] compared to prior imaging studies performed at [facility] on 01/16/2012, 06/13/2013 and 02/11/2021. There are scattered areas of fibroglandular density. There is no suspicious abnormality in either breast. Impression: There is no mammographic evidence of malignancy. Annual screening mammography is recommended. OVERALL FINAL ASSESSMENT: BI-RADS CATEGORY 1: Negative. us Self Screening Mammogram IMG MAMMO PROCEDURES Fi nal Result * CT Lung Cancer Screening (11/02/2021 2:25 PM INSURANCE ASSISTANT) Anatomical Region Laterality Modality Chest N/A Computed Tomogra phy 11/02/2021 2:54 PM INSURANCE ASSISTANT Impressions 11/02/2021 2:54 PM INSURANCE ASSISTANT 1. LungRADS Category 2 (benign) . Recommend [...] Eros Louis M.D. Narrative 11/02/2021 2:54 PM INSURANCE ASSISTANT EXAMINATION: Lung cancer screening CT of the [...] Most Recently Relevant to Health Maintenance Insurance CHOICE PLUS CHOICE PLUS [id number] [place] [address] [employer]PL[employer]YEES EMPLOYEES Advance Directives For more information, please contact: [phone] * Full Code (Latest Code Status on File) Date Activated Date Inactivated Comments 01/02/2020 2:31 PM 01/03/2020 10:51 PM * Full Code Date Activated Date Inactivated Comments 12/23/2019 8:16 PM 12/25/2019 7:36 PM * Full Code Date Activated Date Inactivated Comments 12/20/2019 2:10 PM 12/20/2019 9:42 PM Care Teams Hospital Superintendent Relationship Specialty Start Date End Date Kumar Morris MD PCP - General 02/15/17
--- OUTSIDE RECORDS SUMMARY | 2025-01-31 10:05 | XMS_ITS | Encounter Summary ---
Author Organization [facility] Address [address] [place] [address] Phone Care Team Providers Care Nursing Support Worker Name Role Phone Kumar Morris MD Primary Care Provider [phone] Encounter Details Date Type Department Care Team (Latest Contact Info) Description 02/08/2021 Orders Only [facility] Scanning, Provider Social History Tobacco Use Types Packs/Day Years Used Date Smoking Tobacco: Former Cigarettes - 2007 Smokeless Tobacco: Never Alcohol Use [...] on file Legal Sex Female 2:38 AM WOOL BRUSHER Gender Identity Female 10/06/2020 7:28 AM WOOL BRUSHER Sexual Orientation Straight 10/06/2020 7: 28 AM WOOL BRUSHER documented as of this encounter Plan of Treatment Not on file documented as of this encounter Procedures Procedure Name Priority Date/Time Associated Diagnosis Comments SCAN - LABS 02/08/2021 documented in this encounter Results * SCAN - LABS (02/08/2021) us Provider Scanning Final Result documented in this encounter Visit Diagnoses Not on filedocumented in this encounter Care Teams Nursing Support Worker Relationship Specialty Start Date End Date Kumar Morris MD PCP - General 02/15/17 documented as of this encounter
== END 2025-01-31 09:48 | disposition home or self-care (01) ==
PROVIDERS: PCP Family Medicine; Visit Provider Family Medicine
DX: I20.9 Angina pectoris, unspecified (principal); I47.10 Supraventricular tachycardia, unspecified; Z98.61 Coronary angioplasty status
CPT/HCPCS: 93351